=== PATIENT | male | born 1945 | race Asian ===

== ENCOUNTER 2022-09-30 08:07 | Outpatient (CLI) | payer MEDICARE, SELFPAY ==
--- NOTE | ~2022-09-30 | US_ITS ---
EXAMINATION: US art doppler w press LE BI DATE: 09/30/2022 09:03 INDICATION: Bilateral leg numbness. Decreased pulses. TECHNIQUE: Segmental pressures and plethysmographic and Doppler waveforms of the brachial and lower e xtremity arteries were obtained. COMPARISON: None. FINDINGS: Right and left brachial artery pressures of 115 mm Hg and 130 mm Hg, respectively, are concordant (no rmal difference <= 30 mmHg). The right and left high-thigh pressure indices are 1.20 and 1.26, respec tively (normal > 1.2). The right ankle-brachial index (DARIANA) is 1.25 (normal >= 0.9-1). The right great toe-brachial index (T BI) is 1.02 (normal >= 0.6-0.8). The right lower extremity segmental pressure gradients are normal (n ormal gradients <= 20-30 mmHg between adjacent levels on the same leg or the same levels on the two l egs). Arterial waveforms are triphasic at the right popliteal, posterior tibial and dorsalis pedis ar teries and biphasic at the right common femoral and superficial femoral arteries with brisk systolic upstrokes throughout. The left DARIANA is 1.25. The left TBI is 0.75. The left lower extremity segmental pressure gradients are normal. Arterial waveforms are triphasic at the left common femoral and popliteal arteries and bipha sic at the left superficial femoral, posterior tibial and dorsalis pedis arteries with brisk systolic upstrokes throughout. IMPRESSION: 1. Normal DARIANA's and TBI's bilaterally. No significant occlusive disease. Reviewed, dictated and finalized at location L.
== END 2022-09-30 08:08 | disposition home or self-care (01) ==
PROVIDERS: PCP Internal Medicine; Visit Provider Internal Medicine Cardiovascular Disease
DX: R20.0 Anesthesia of skin (principal); R09.89 Other specified symptoms and signs involving the circulatory and respiratory systems
CPT/HCPCS: 93923

== ENCOUNTER → 2022-10-12 10:50 | Outpatient (CLI) | payer MEDICARE, SELFPAY ==
--- NOTE | ~2022-10-12 | CT_ITS ---
Clinical Indication: Prostate carcinoma CT Scan of the Chest, Abdomen, and Pelvis without Contrast: Technique: Contiguous sections were acquired throughout the chest, abdomen, and pelvis without IV con trast administration. Dose reduction technique was used on this scan by utilizing automated exposure control and iterative reconstruction technique. The dose-length product (DLP) was 921.64 mGy-cm. Findings: There is no evidence of any significant mediastinal, hilar or axillary lymphadenopathy. The mediastin al soft tissues appear normal. There is no evidence of pleural or pericardial effusion. The lungs are clear, aside from right lower lobe calcified granuloma. The liver, spleen, pancreas, gallbladder, and kidneys are within normal limits. Bilateral low-density adrenal nodule consistent with bilateral adenomas, stable from prior exam. There are atherosclerotic calcifications of the aorta. No lymphadenopathy. No bowel obstruction or bowel wall thickening. There is no evidence to suggest acute appendicitis. Urinary bladder is unremarkable. Evidence of prior presumed prostatectomy. There is sclerotic change in the S1 vertebral body. There is a small sclerotic lesion at the left carlyle ac bone (axial image 200). Impression: Sclerotic change in the S1 vertebral body, and small sclerotic lesion at the right iliac bone. These findings are somewhat nonspecific. These are probably benign, likely representing reactive sclerosis S1 due to underlying degenerative disc disease, and small left iliac bone island. Osteoblastic metast atic disease is difficult to completely excluded however. Correlate clinically and with PSA levels. No other findings to suggest metastatic disease. Bilateral adrenal adenomas, unchanged. Reviewed, dictated and finalized at [facility]. Impression: Sclerotic change in the S1 vertebral body, and small sclerotic lesion at the ri ght iliac bone. These findings are somewhat nonspecific. These are probably nirav ign, likely representing reactive sclerosis S1 due to underlying degenerative d isc disease, and small left iliac bone island. Osteoblastic metastatic disease is difficult to completely excluded however. Correlate clinically and with PSA levels. No other findings to suggest metastatic disease. Bilateral adrenal adenomas, unchanged.
== END ==
PROVIDERS: PCP Internal Medicine; Visit Provider Internal Medicine
DX: C61 Malignant neoplasm of prostate (principal); D35.02 Benign neoplasm of left adrenal gland; D35.01 Benign neoplasm of right adrenal gland; M89.9 Disorder of bone, unspecified
CPT/HCPCS: 71250; 74176

== ENCOUNTER → 2022-11-11 11:43 | Outpatient (CLI) | payer MEDICARE, SELFPAY ==
--- NOTE | ~2022-11-11 | MR_ITS ---
EXAMINATION: MR hip LT wo con DATE: 11/11/2022 13:55 INDICATION: Prostate cancer. Low back pain. TECHNIQUE: Magnetic resonance imaging (MRI) of the left hip was performed without intravenous contra st. Sequences included full-field axial PD-weighted FS FSE and T1-weighted FSE, coronal of the pelvis with PD-weighted FS FSE, small field of view of the affected hip with axial PD-weighted FS FSE, sag ittal PD-weighted FS FSE and coronal PD weighted FS FSE. Additional radial T1-weighted FGR oriented o rthogonal to the acetabular rim were obtained for evaluation of the labrum. COMPARISON: None FINDINGS: Bones/labrum/cartilage: Mild leftward tilt of the visualized lower lumbar spine where there is severe spondylosis. Small low signal intensity bone island at the intertrochanteric right femur. 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 Chondral labral delamination with small partial-thickness tear at the base of the posterior superior left acetabular labrum. There is mild left hip osteoarthritis with nonuniform superomedial predominant joint space narrowing with mild partial thickness cartilage loss. No degenerative subchondral changes. Moderate osteoarthritis at the bilateral sacroiliac joints and mild right hip osteoarthritis. Fluid: Symmetric physiologic amount of fluid within both hip joints. Soft tissues: Normal and symmetric muscle bulk and signal in the pelvis and visualized proximal thighs. The iliopso as, gluteal and proximal hamstring tendons are normal. Status post prostatectomy with a few foci of m agnetic field artifact associated with surgical clips at the prostatectomy bed. Limited evaluation of visceral organs of the pelvis is otherwise unremarkable. No pathologically enlarged pelvic/inguinal lymphadenopathy. IMPRESSION: 1. Mild bilateral hip osteoarthritis with tear at the posterior superior left acetabular labrum. 2. Severe lower lumbar spondylosis. 3. No bone lesions suspicious for metastatic disease. Reviewed, dictated and finalized at location A. IMPRESSION: 1. Mild bilateral hip osteoarthritis with tear at the posterior superior left a cetabular labrum. 2. Severe lower lumbar spondylosis. 3. No bone lesions suspicious for metastatic disease.
--- NOTE | ~2022-11-11 | MR_ITS ---
EXAMINATION: MR lumbar spine wo con DATE: 11/11/2022 13:43 INDICATION: Low back pain. Prostate cancer. TECHNIQUE: Magnetic resonance imaging (MRI) of the lumbar spine was performed without intravenous con trast. Sequences included sagittal T2-weighted FSE, sagittal T2-weighted FS FSE, sagittal T1-weighted FSE, and axial T2-weighted FSE. COMPARISON: Lumbar spine MRI 09/03/2011, CT abdomen and pelvis 10/12/2022 FINDINGS: There is 5 degrees dextrocurvature of lumbar spine. Vertebral body heights are normal. Ther e is mildly decreased disc height at L3-L4 and L4-L5 and severely decreased disc height at L5-S1. The re are bridging endplate osteophytes at L3-L4. The distal spinal cord signal intensity is normal. The conus medullaris is at L1. The following disc levels are specifically discussed: L1-L2: The disc does not extend beyond the endplate margin. There is moderate right and mild left fac et joint osteoarthritis. There is no neural foraminal stenosis. There is no central canal stenosis. L2-L3: The disc does not extend beyond the endplate margin. There is moderate bilateral facet joint o steoarthritis. There is no neural foraminal stenosis. There is no central canal stenosis. L3-L4: The disc does not extend beyond the endplate margin. There is severe bilateral facet joint ost eoarthritis. There is no neural foraminal stenosis. There is no central canal stenosis. L4-L5: The disc is bulging with superimposed left foraminal extrusion. There is severe bilateral face t joint osteoarthritis. There is mild right and severe left neural foraminal stenosis. There is mild central canal stenosis. L5-S1: The disc is bulging and has an annular fissure. There is severe bilateral facet joint osteoart hritis. There is moderate right and mild left neural foraminal stenosis. There is mild central canal stenosis. IMPRESSION: 1. Severe lumbar spondylosis, worsened from 09/03/2011. 2. No evidence of metastatic disease. Reviewed, dictated and finalized at location A.
== END ==
PROVIDERS: PCP Internal Medicine; Visit Provider Internal Medicine
DX: M16.0 Bilateral primary osteoarthritis of hip (principal); S73.192A Other sprain of left hip, initial encounter; M43.06 Spondylolysis, lumbar region
CPT/HCPCS: 72148; 73721

== ENCOUNTER 2024-02-29 10:43 | Outpatient (CLI) | payer MEDICARE, SELFPAY ==
--- NOTE | ~2024-02-29 | XR_ITS ---
Right Knee Technique: AP, lateral, and sunrise views were obtained. Clinical History: Osteoarthritis Findings: No fracture or dislocation is seen. Osseous alignment is anatomic. Joint spaces are preserv ed without degenerative or erosive change. Chondrocalcinosis of the menisci noted. No joint effusion is seen. Impression: Chondrocalcinosis of the menisci. No acute abnormalities. Reviewed, dictated and finalized at location . 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 No acute abnormalities.
--- NOTE | ~2024-02-29 | XR_ITS ---
Left Knee Technique: AP, lateral, and sunrise views were obtained. Clinical History: Osteoarthritis Findings: No fracture or dislocation is seen. Osseous alignment is anatomic. Joint spaces are preserv ed without degenerative or erosive change. Soft tissues are unremarkable. No joint effusion is seen. Impression: Unremarkable left knee radiographs. Reviewed, dictated and finalized at location . KAYAKING GUIDE Impression: Unremarkable left knee radiographs.
== END 2024-02-29 10:44 | disposition home or self-care (01) ==
PROVIDERS: PCP Internal Medicine; Visit Provider Internal Medicine
DX: M11.261 Other chondrocalcinosis, right knee (principal)
CPT/HCPCS: 73564

== ENCOUNTER 2024-08-24 09:26 | Outpatient (CLI) | payer MEDICARE, SELFPAY ==
--- OUTSIDE RECORDS SUMMARY | 2024-08-24 09:35 | XMS_ITS | Encounter Summary ---
Author Organization [facility] Address [address] [place] [address] Phone Care Team Providers Care Club Director Name Role Phone Ferny Richmond MD Primary Care Provider Encounter Details Date Type Department Care Team (Late st Contact Info) Description 08/23/2024 1:15 PM CDT Lab [facility] Oncology Lab [facility] Floor [address] [place] [address] Cancer of prostate (HCC) Social History Tobacco Use Types Packs/Day Years Used Date Smoking Tobacco: Every Day Cigarettes Passive Smoke Exposure: Current Smokeless Tobacco: Never Alcohol Use Standard Drinks/Week Comments Yes 0 (1 standard drink = 0.6 oz pur e alcohol) occasionally Personal Safety Answer Date Recorded Have you ever been in or are you currently in a harmful physical or emotional relationship or is someone making you feel afraid or unsafe? 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
--- OUTSIDE RECORDS SUMMARY | 2024-08-24 09:35 | XMS_ITS | Encounter Summary ---
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 Gender Identity Not on file Sexual Orientation Not on file documented as of this encounter Plan of Treatment Not on file documented as of this encounter Procedures Procedure Name Priority Date/Time Associated Diagnosis Comments EGFR Routine 08/23/2024 1:08 PM CDT Cancer of prostate (HCC) DIFFERENTIAL AUTO Routine 08/23/2024 1:0 8 PM CDT Cancer of prostate (HCC) CBC WITH AUTO DIFFERENTIAL Routine 08/23/2024 1:08 PM CDT Cancer of prostate (HCC) TOTAL TESTOSTERONE Routine 08/23/2024 1: 08 PM CDT Cancer of prostate (HCC) PSA DIAGNOSTIC Routine 08/23/2024 1:08 PM CDT Cancer of prostate (HCC) COMPREHENSIVE METABOLIC PANEL Routine 08/23/2024 1:08 PM CDT Cancer of prostate (HCC) documented in this encounter Results * eGFR (08/23/2024 1:08 PM CDT) eGFR 87 >=60 mL/min/1. 73 m2 Comment: Interpretive Data Reference Interval Normal >/= 90 mL/min/1.73m2 Mildly decreased* 60 - 89 mL/min/1.73m2 Mildly to moderately decreased 45 - 59 mL/min/1.73m2 Moderately to severely decreased 30 - 44 mL/min/1.73m2 Severely decreased 15 - 29 mL/min/1.73m2 Kidney Failure < 15 mL/min/1.73m2 *Relative to young adult level Estimated glomerular filtration rate is determined by the 2020 CKD-EPI equation recommended by the National Kidney Foundation (A Unifying Approach to GFR Estimation: Recommendations of the NKF-ASK Task Force on Reassessing the Inclusion of Race in Diagnosing Kidney Disease, JASN 2020). The CKD-EPI equation should not be used for patients with unstable renal function and has not been validated in children and those over 70. Current interpretive data was last reviewed 2021. Blood 08/23/2024 1:08 PM CDT 08/23/2024 1:15 PM CDT us Cem Howell MD LAB BLOOD ORDERABLES Fin al Result [facility] Department [place] [address] * Differential, auto (08/23/2024 1:08 PM CDT) Neutrophil abs 3.78 1.50 - 6.50 K/cumm Comment:Testing performed by : [facility], [address] [place], [place] [id number] Lymphocyte abs 0.90 0.80 - 3.30 K/cumm [facility] Comment:Testing performed by : [facility], [address] [place], [place] [phone] Monocyte abs 0.42 0.20 - 0.80 K/cumm [facility] Comment:Testing performed by : [facility], [address] [place], [place] [id number] Eosinophil abs 0.14 0.00 - 0.50 K/cumm [facility] Comment:Testing performed by : [facility], [address] [place], [place] [phone] Basophil abs 0.05 0.00 - 0.10 K/cumm [facility] Comment:Testing performed by : [facility], [address] [place], [place] [phone] Neutrophil pct 71.6 % [facility] Comment: Interpretive Data Percent cell count reference ranges are not reported, since discordance with absolute values may lead to misinterpretation of CBC data. Current Interpretive Data was last revised on 2017. Testing performed by: [facility], [address] [place] [phone] Lymphocyte pct 17.0 % [facility] Comment: Interpretive Data Percent cell count reference ranges are not reported, since discordance with absolute values may lead to misinterpretation of CBC data. Current Interpretive Data was last revised on 2017. Testing performed by: [facility], [address] [place] [phone] Monocyte pct 7.9 % [facility] Comment: Interpretive Data Percent cell count reference ranges are not reported, since discordance with absolute values may lead to misinterpretation of CBC data. Current Interpretive Data was last revised on 2017. Testing performed by: [facility], [address] [place] [phone] Eosinophil pct 2.6 % [facility] Comment: Interpretive Data Percent cell count reference ranges are not reported, since discordance with absolute values may lead to misinterpretation of CBC data. Current Interpretive Data was last revised on 2017. Testing performed by: [facility], [address] [place] [phone] Basophil pct 1.0 % [facility] Comment: Interpretive Data Percent cell count reference ranges are not reported, since discordance with absolute values may lead to misinterpretation of CBC data. Current Interpretive Data was last revised on 2017. Testing performed by: [facility], [address] [place] [phone] Blood 08/23/2024 1:08 PM CDT 08/23/2024 1:12 PM CDT us Cem Howell MD LAB BLOOD ORDERABLES Fin al Result [facility] [place] [address] * (ABNORMAL) CBC with auto differential (08/23/2024 1:08 PM CDT) WBC 5.28 3.80 - 9.90 K/cumm Comment:Testing performed by : [facility], [address] [place] [address] Hgb 13.3 13.0 - 17.5 g/dL [facility] Comment:Testing performed by : [facility], [address] [place] [address] Hct 39.1 38.9 - 50.3 % [facility]ISETH [facility] Comment:Testing performed by : [facility], [address] [place] [address] Plt 172 150 - 400 K/cumm LISETH [facility] Comment:Testing performed by : [facility], [address] [place] [address] MPV 8.1 6.8 - 10.4 fL [facility] Comment:Testing performed by : [facility], [address] [place] [address] RBC 4.24(L) 4.30 - 5.80 M/cumm [facility] Comment:Testing performed by : [facility], [address] [place] [address] MCV 92.3 81.3 - 96.4 fL [facility] Comment:Testing performed by : [facility], [address] [place] [address] MCH 31.3 27.1 - 33.3 pg [facility]ETH [facility] Comment:Testing performed by : [facility], [address] [place] [address] MCHC 33.9 32.3 - 35.7 g/dL [facility] Comment:Testing performed by : [facility], [address] [place] [address] RDW CV 14.0 11.1 - 14.9 % [facility] Comment:Testing performed by : [facility], [address] [place] [address] NRBC abs 0.00 0.00 - 0.01 K/cumm [facility] Comment:Testing performed by : [facility], [address] [place] [address] Blood 08/23/2024 1:08 PM CDT 08/23/2024 1:12 PM CDT us Cem Howell MD LAB BLOOD ORDERABLES [facility] al Result [facility] [place] [address] * Comprehensive metabolic panel (08/23/2024 1:08 PM CDT) Sodium 144 135 - 145 mmol/L Potassium, pl 4.7 3.3 - 4.9 mmol/L [facility] Chloride 107 97 - 110 mmol/L [facility] CO2 28 22 - 32 mmol/L [facility] Anion gap 9 2 - 15 mmol/L [facility] BUN 21 6 - 25 mg/dL [facility] Creatinine 0.90 0.80 - 1.30 mg/dL [facility] Glucose 125 70 - 199 mg/dL [facility] Comment: Interpretive Data Fasting glucose >/= 126 mg/dl is diagnostic for diabetes. Fasting is defined as no caloric intake for at least 8 hours. Fasting glucose between 100 mg/dl to 125 mg/dl is diagnostic of prediabetes. In a patient with classic symptoms of hyperglycemia or hyperglycemic crisis, a random glucose >/= 200 mg/dl is diagnostic for diabetes. In the absence of unequivocal hyperglycemia, results should be confirmed by repeat testing. The classification and Diagnosis of Diabetes Diabetes Care 202; 46: S19-S40. Current interpretive data was last revised 2022. Calcium 9.5 8.5 - 10.3 mg/dL [facility] Bilirubin, total 0.2 0.1 - 1.2 mg/dL [facility] Protein, pl 7.2 6.5 - 8.5 g/dL [facility] Albumin 4.4 3.5 - 5.0 g/dL [facility] Alk phos 66 40 - 130 Units/L [facility] ALT 16 7 - 55 Units/L [facility] AST 25 10 - 50 Units/L [facility] Blood 08/23/2024 1:08 PM CDT 08/23/2024 1:15 PM CDT us Cem Howell MD LAB BLOOD ORDERABLES Fin al Result [facility] [place] [address] * PSA diagnostic (08/23/2024 1:08 PM CDT) PSA-Total <0.02 <=6.20 ng/mL Comment: Interpretive Data AGE SEX REFERENCE INTERVAL 0 minutes-150 years Female None 0 minutes-49 years Male None 50-59 years Male 0-3.90 60-69 years Male 0-5.40 70-79 years Male 0-6.20 80-150 years Male 0-6.20 The Kev PSA Total assay procedure was used. Results from different manufacturers or methods may not be comparable. Serial testing should be performed using the same method. Current interpretive data last revised 21. Blood 08/23/2024 1:08 PM CDT 08/23/2024 1:15 PM CDT Cem Howell MD LAB BLOOD ORDERABLES Fin al Result Performing Organization Address City[facility] Co de Phone Number [facility] [place] [address] * (ABNORMAL) Total testosterone (08/23/2024 1:08 PM CDT) Testosterone 15.0(L) 193.0 - 740.0 ng/dL Blood 08/23/2024 1:08 PM CDT 08/23/2024 1:37 PM CDT Cem Howell MD LAB BLOOD ORDERABLES Fin al Result Performing Organization Address [facility] de Phone Number [place] [address] documented in this encounter Visit Diagnoses Diagnosis Cancer of prostate (HCC) Malignant neoplasm of prostate documented in this encounter Care Teams Associate Director Relationship Specialty Start Date End Date Ferny Richmond MD PCP - General 05/17/16 documented as of this encounter
--- OUTSIDE RECORDS SUMMARY | 2024-08-24 09:35 | XMS_ITS | Data Portability ---
Author Organization [place] [facility] [address], Main Office Address [address] [place] [address] Assessment No assessment recorded. Plan of Treatment Reminders Order Date Submit Date Provider Last Modified By Organization Details Last Modified Time Details Appointments None recorded. Lab lipid panel, serum [id number] [place] [address] - Outpatient Lab, [address] [place], [address], 5 11:21:25 CMP, serum or plasma [id number] [place] [address] - Outpatient Lab, [address] [place], [address], 5 11:21:25 TSH, serum or plasma [id number] [place] [address] Outpatient Lab, [address] [place], [address], 5 11:21:25 T4, free, serum [id number] [place] [address] - Outpatient Lab, [address] [place], [address], 5 11:21:26 CBC w/ auto diff [id number] [place] [address] Outpatient Lab, [address] [place], [address], 5 11:21:26 vitamin B12, serum [id number] [place] [address] Outpatient Lab, [address] [place], [address], 11:21:26 Referral None recorded. Procedures None recorded. Surgeries None recorded. Imaging None recorded. Medication Orders None recorded. Patient TargetsNo targets recorded. Patient Instructions Encounter Date Encounter Id Patient Instructions Last Modified By Organization Details Last Modified Time 11/29/2023 [id number] Acute pharyngiti s, hypertension, carcinoma of the prostate as well as positive antinuclear antibody. Will set up with rheumatology for further evaluation. Will continue on current Rx recheck back in eight weeks see how the patient is doing. Additional Orders - Directives - Recommendations 1. Set up for with rheumatology for positive ALONSO Next Appointment: 8 Weeks Approximate Date: 01/24/2024 Portions of the record may have been created with voice recognition software. Occasional wrong-word or s ound-a-like substitutions may have occurred due to the inherent limitations of voice recognition software. Read the chart carefully and recognize, using context, where substitutions have occurred. [email or web address] Not available 11/29/2023 14:45:10 12/22/2023 [id number] Posterior nuchal headaches possibly hypertensive in nature. Increase the metoprolol to 50 mg twice daily. Recheck blood pressure in the office in one week. Additional Orders - Directives - Recommendations 1. Will increase his metoprolol from 25-50 mg twice daily 2. Instructed to drop by the office in approximately one week just to get his blood pressure check. Follow Up: 2 Months Approximate Date: 02/20/2024 Portions of the record may have been created with voice recognition software. Occasional wrong-word or s ound-a-like substitutions may have occurred due to the inherent limitations of voice recognition software. Read the chart carefully and recognize, using context, where substitutions have occurred. [email or web address] Not available 12/22/2023 15:42:52 02/16/2024 [id number] Follow-up for hypertension, hyperlipidemia, GERD, primary malignancy of the pad prostate and chronic pain syndrome. No specific etiology has been found for any of his musculoskeletal or pain complaints. Has undergone extensive evaluation at the [facility] with little in the way of any significant anomalies. Has known history of cancer of the prostate does not appear to be causing any type of major metastatic symptomatology. Has also had chest pain has been seen by Cardiology was just recently placed on some Ranexa which seems to have had no effect upon any chest pain. This would indicate probably has no nonobstructive coronary disease as well. Because of significant knee pain. Will obtain radiographic studies of both knees. No specific anomalies are noted on the physical examination. Check back in two months Additional Orders - Directives - Recommendations 1. x-rays of both knees for osteoarthritis Follow Up: 2 Months Approximate Date: 04/16/2024 Portions of the record may have been created with voice recognition software. Occasional wrong-word or s ound-a-like substitutions may have occurred due to the inherent limitations of voice recognition software. Read the chart carefully and recognize, using context, where substitutions have occurred. Created: Ferny Richmond M.D. 02.16.2024 02:39 PM [email or web address] Not available 02/16/2024 15:39:18 04/26/2024 [id number] Follow-up essent ial hypertension, hyperlipidemia, GERD as well as carcinoma of the prostate. Plan to check blood work consisting of CBC, CMP, lipid, thyroid. Will hold the lisinopril to see if there is any improvement in the cough. Otherwise seems to be doing well. Follow-up in four months Follow Up: 4 Months Approximate Date: 08/24/2024 Portions of record are template driven. When necessary additional context will be provided. Additionally some portions have been created with voice recognition software. Occasional wrong-word or s ound-a-like substitutions may have occurred due to the inherent limitations of voice recognition software. Read the chart carefully and recognize, using context, where substitutions may have occurred. Created: Ferny Richmond M.D. 04.26.2024 03:38 PM [email or web address] Not available 04/26/2024 16:38:25 08/09/2024 [id number] Follow-up essent ial hypertension, hyperlipidemia, carcinoma of the prostate and wheezing. Will obtain some baseline pulmonary functions. Has had some recent blood work performed in April. Will continue on current Rx follow-up in four months. Additional Orders - Directives - Recommendations 1. Set of pulmonary functions to be done up at [facility]. Follow Up: 4 Months Approximate Date: 12/07/2024 Portions of record are template driven. When necessary additional context will be provided. Additionally some portions have been created with voice recognition software. Occasional wrong-word or s ound-a-like substitutions may have occurred due to the inherent limitations of voice recognition software. Read the chart carefully and recognize, using context, where substitutions may have occurred. Created: Ferny Richmond M.D. 08.09.2024 03:41 PM [email or web address] Not available 08/09/2024 16:41:30 Reason for Referral None Reported. Results Created Date Observation Date Name Description Value Unit Range Abnormal Flag Note LastModifiedBy Organization Detail LastModifiedTime 11/17/19 24 11/22/2023 URIC ACID uric acid 3.1 mg/dL 4.0-8. 0 low Thera peuti c targe t for gout patie nts: <6.0 mg/dL Not Available [facility] [address] [place], [address], 11/22/2023 13:48:05 11/17/19 24 11/22/2023 ALONSO SCREE N, IFA, W/REF L TITER AND PATTE RN ALONSO screen, ifa POSITI VE negati ve abnormal ALONSO IFA is a first line scree n for detec ting the prese nce of up to appro ximat chip 150 autoa ntibo dies in vario us autoi mmune disea ses. A posit dinh ALONSO IFA resul t is sugge stive of autoi mmune disea se and refle xes to titer and adilson rn. Furth er labor atory testi ng may be consi dered if clini kamilah indic ated. For addit ional infor elvia roldan refer to http: //[facility].Fransisco stDia gnost ics.c om/fa q/FAQ 177 (This link is being provi ded for infor nroma santos/ educa kailyn l purpo ses only. ) Not Available [facility] [address], [place], [address], 11/22/2023 13:48:05 11/17/19 24 11/22/2023 ANTIN UCLEA R ANTIB ODIES TITER AND PATTE RN ALONSO titer 1:40 titer high A low level ALONSO titer may be prese nt in pre-c linic al autoi mmune disea ses and silvestre l indiv idual s. Refer ence Range <1:40 Negat dinh 1:40- 1:80 Low Antib re Level >1:80 Columbia holden Antib re Level Not Available [address] [address] [place], [address], 11/22/2023 13:48:06 11/17/19 24 11/22/2023 ANTIN UCLEA R ANTIB ODIES TITER AND PATTE RN ALONSO pattern Nuclea r, Speckl ed abnormal Speck led patte rn is assoc iated with mixed conne ctive tissu e disea se (MCTD ), syste el lupus eryth emato randall (SLE) , Sjogr en's syndr ome, derma tomyo sitis , and syste el scler osis/ polym yosit is overl ap. AC-2, 4,5,2 9: Speck led Inter natio nal Conse nsus on ALONSO Patte rns (http s://d oi.or g/10. 1515/ ccl- 2017- 0052) Not Available [facility] [address] [address] [place], [address], 11/22/2023 13:48:06 11/17/19 24 11/22/2023 ANTIN UCLEA R ANTIB ODIES TITER AND PATTE RN ALONSO titer 1:80 titer high A low level ALONSO titer may be prese nt in pre-c linic al autoi mmune disea ses and silvestre l indiv idual s. Refer ence Range <1:40 Negat dinh 1:40- 1:80 Low Antib re Level >1:80 Columbia holden Antib re Level Not Available [address] [address] [place], [address], 11/22/2023 13:48:06 11/17/19 24 11/22/2023 ANTIN UCLEA R ANTIB ODIES TITER AND PATTE RN ALONSO pattern Cytopl asmic, Rods and Rings abnormal Disti nct raúl and ring struc tures in the cytop lasm of inter phase cells . Patte rn is seen in hepat itis C patie nts post- IFN/r ibavi rin thera py, rarel y in syste el lupus eryth emato randall (SLE) , Fermin sukumar' s thyro iditi s, and may be found in healt hy perso ns. AC-23 : Rods and Rings Inter natio nal Conse nsus on ALONSO Patte rns (http s://d oi.or g/10. 3835/ [facility]- 2017- 0052) Not Available [address], [address], 11/22/2023 13:48:06 11/17/19 24 11/22/2023 COMPL EMENT COMPO NENT C3C complement component C3C 124 mg/dL 82-185 normal Not Available [address], [address], 11/22/2023 13:48:07 11/17/19 24 11/22/2023 COMPL EMENT COMPO NENT C4C complement component C4C 24 mg/dL 15-53 normal Not Available [address] [place], [address], 11/22/2023 13:48:07 11/17/19 24 11/22/2023 RHEUM ATOID FACTO R rheumatoid factor <10 IU/mL <14 normal Not Available [address] [place], [address], 11/22/2023 13:48:08 11/17/19 24 11/22/2023 C-ENRIQUETA CTIVE PROTE IN C-reactive protein <3.0 mg/L <8.0 normal Not Available [address], [address], 11/22/2023 13:48:08 11/17/19 24 11/22/2023 SCL-7 0 ANTIB RE scl-70 antibody <1.0 NEG ai <1.0 neg normal Not Available [address] [address] [place], [address], 11/22/2023 13:48:09 11/17/19 24 11/22/2023 SM AND SM/RN P ANTIB ODIES sm antibody <1.0 NEG ai <1.0 neg normal Not Available [address] [place], [address], 11/22/2023 13:48:10 11/17/19 24 11/22/2023 SM AND SM/RN P ANTIB ODIES sm/imaging engineer antibody <1.0 NEG ai <1.0 neg normal Not Available [address] [place], [address], 11/22/2023 13:48:10 11/17/19 24 11/22/2023 SJOGR EN'S ANTIB ODIES (SS-A ,SS-B ) sjogren's antibody (ss-A) <1.0 NEG ai <1.0 neg normal Not Available [address], [address], 11/22/2023 13:48:10 11/17/19 24 11/22/2023 SJOGR EN'S ANTIB ODIES (SS-A ,SS-B ) sjogren's antibody (ss-B) <1.0 NEG ai <1.0 neg normal Not Available [address], [address], 11/22/2023 13:48:10 11/17/19 24 11/22/2023 ALONSO MULTI PLEX W/REF KAYE 11 AB CASCA DE ALONSO screen, immunoassay NEGATI VE negati ve normal A negat dinh ALONSO Multi plex indic ates the absen ce of detec table antib odies to compo nent zoey sahra consi sting of toña e yung ded DNA (dsDN A), chrom atin, ribon ucleo prote in (MANHOLE BUILDER) , Pandey /MANHOLE BUILDER (Sm/R BENDING FRAME OPERATOR), Pandey (Sm), SS-A, SS-B, Fern-1, centr omere B, Scl-7 0 and ribos omal P. A negat dinh resul t shoul d be inter prete d in the sonu xt of the clini bernabe and labor atory findi ngs and does not rule out autoi mmune disea se juwan cteri zed by other autoa ntibo dy speci ficit ies such as rheum atoid arthr itis, autoi mmune hepat itis, prima ry bilia ry cirrh osis, autoi mmune thyro iditi s, Kake on's disea se, perni cious anemi a, autoi mmune neuro pathi es, vascu litis , ursula c disea se, and bullo us disea se. For addit ional infor elvia roldan e refer to http: //[facility] gnvy ics.c om/fa q/FAQ 177 (This link is being provi ded for infor norma santos/ educa kailyn l purpo ses only. ) Not Available [facility] [address] [place], [address], 11/22/2023 13:48:11 11/17/19 24 11/22/2023 HEMOG LOBIN A1C hemoglobin A1C 5.7 %_of_ total _HGB <5.7 high For someo ne witho ut known diabe sahra, a hemog lobin A1c value betwe en 5.7% and 6.4% is consi stent with predi abete s and shoul d be confi rmed with a follo w-up test. For someo ne with known diabe sahra, a value <7% indic ates that their diabe sahra is well contr olled . A1c targe ts shoul d be indiv idual ized based on durat ion of diabe sahra, age, comor bid condi tions , and other consi derat ions. This assay resul t is consi stent with an incre ased risk of diabe sahra. Curre ntly, no conse nsus exist s regar ding use of hemog lobin A1c for diagn osis of diabe sahra for child luke. This test was perfo rmed on the Kev humberto c503 platf orm. Effec tive , dimitry montague in test platf orms from the Abbot t Archi tect to the Kev humberto c503 may have shift ed HbA1c resul ts saumya red to histo rical resul ts. Based on labor atory valid ation testi ng condu cted at [facility] , the Kev platf orm relat dinh to the Abbot t platf orm had an avera ge incre ase in HbA1c value of < or = 0.3%. This diffe rence is withi n accep holden varia bilit y estab lishe d by the Natio nal Glyco hemog lobin Stand ardiz ation Progr am. Note that not all indiv idual s will have had a shift in their resul ts and direc t saumya rison s betwe en histo rical and curre nt resul ts for testi ng condu cted on diffe rent platf orms is not recom cass d. Not Available [facility] [address] [place], [address], 11/22/2023 13:48:11 11/17/19 24 11/22/2023 ANTIN UCLEA R ANTIB ODIES TITER AND PATTE RN ALONSO titer 1:40 titer high A low level ALONSO titer may be prese nt in pre-c linic al autoi mmune disea ses and silvestre l indiv idual s. Refer ence Range <1:40 Negat dinh 1:40- 1:80 Low Antib re Level >1:80 [place] holden Antib re Level Not Available [facility] [address] [place], [address], 11/22/2023 14:22:00 11/17/19 24 11/22/2023 ANTIN UCLEA R ANTIB ODIES TITER AND PATTE RN ALONSO pattern Nuclea r, Speckl ed abnormal Speck led adilson rn is assoc iated with mixed conne ctive tissu e disea se (MCTD ), syste el lupus eryth emato randall (SLE) , Sjogr en's syndr ome, derma tomyo sitis , and syste el scler osis/ polym yosit is overl ap. AC-2, 4,5,2 9: Speck led Inter natio nal Conse nsus on ALONSO Patte rns (http s://d oi.or g/10. 1515/ [facility]- 2017- 0052) Not Available [address] [address] [place], [address], 11/22/2023 14:22:00 11/17/19 24 11/22/2023 ANTIN UCLEA R ANTIB ODIES TITER AND PATTE RN ALONSO titer 1:80 titer high A low level ALONSO titer may be prese nt in pre-c linic al autoi mmune disea ses and silvestre l indiv idual s. Refer ence Range <1:40 Negat dinh 1:40- 1:80 Low Antib re Level >1:80 Columbia holden Antib re Level Not Available [address] [address] [place], [address], 11/22/2023 14:22:00 11/17/19 24 11/22/2023 ANTIN UCLEA R ANTIB ODIES TITER AND PATTE RN ALONSO pattern Cytopl asmic, Rods and Rings abnormal Disti nct raúl and ring struc tures in the cytop lasm of inter phase cells . Patte rn is seen in hepat itis C patie nts post- IFN/r ibavi rin thera py, rarel y in syste el lupus eryth emato randall (SLE) , Fermin sukumar' s thyro iditi s, and may be found in healt hy perso ns. AC-23 : Rods and Rings Inter natio nal Conse nsus on ALONSO Patte rns (http s://d oi.or g/10. 1515/ [facility]- 2017- 0052) Not Available [address] [address] [place], [address], 11/22/2023 14:22:00 02/29/20 24 02/29/2024 XR, knee No observ ation record ed. [email or web address] Not Available 2023 17:39:24 Result Notes None recorded. Problems Name Problem SNOMED Code Status Onset Date Resolution Date Notes Provider Name and Address Organization Details Recorded Time Pain of right shoulder joint 7113435789879 9100 Active 2022 Debi Sroto CMA null, [place] [facility] 3 13:00:35 Full thickness rotator cuff tear 798357896 Active 2022 Wolf Hand MD [address] [facility] [address], [place], [address] , [place] [facility] 3 13:39:14 Atypical chest pain 496623513 Active 2022 Ferny Richmond MD [address] [facility], [address], [place], [address] , [place] [facility] 3 16:53:13 Carcinoma of prostate 745536917 Active 2022 Katherine luna, [place] [facility] 3 16:36:12 Pain of left hip joint 4538125213566 00 Active 2022 Debi Sorto CMA null, [place] [facility] 3 14:07:51 Pain in left lower limb 698893538 Active 2022 Debi Sorto CMA null, [place] [facility] 3 14:08:22 Pain in limb 77438976 Active 2022 Debi Sorto CMA null, [place] [facility] 3 14:08:53 Pain of right knee joint 6576378130993 00 Active 2022 Debi Sorto CMA null, [place] [facility] 3 14:52:33 Pain of left ankle joint 0681644759936 9103 Active 2022 Debi Sorto CMA null, [place] [facility] 3 14:52:44 Malignant neoplasm of prostate 340896069 Active 2022 Katherine luna, [place] [facility] 3 12:06:56 Low back pain 484591935 Active 2022 Jonelle luna, [place] [facility] 3 17:09:18 Neuropathy 947791019 Active 2022 Debi Sorto CMA null, [facility] 3 17:35:34 Diverticul itis of colon 287847334 Active Not Available [facility] 3 03:14:42 Serum vitamin B12 below reference range 440686280 Active Not Available [facility] 3 03:14:42 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 Not Available [facility] 3 03:14:42 Pure hyperchole sterolemia 059884908 Active Not Available [facility] 3 03:14:42 Anemia 787572356 Active 2021 Not Available [facility] 3 03:14:42 Chest pain 48612003 Active 2021 Not Available [facility] 3 03:14:42 Depressive disorder 54984983 Active Not Available [facility] 3 03:14:42 Chronic pain syndrome 652899878 Active 2020 Not Available [facility] 3 03:14:42 Osteoarthr itis 344667741 Active Not Available [facility] 3 03:14:42 History of polyp of colon 072468682 Active Not Available [facility] 3 03:14:42 Pain of hip region 50117603 Active 2019 Not Available [facility] 3 03:14:42 COVID-19 446648719 Active 2021 Not Available [facility] 3 03:14:43 Primary malignant neoplasm of prostate 03433415 Active Not Available [facility] 3 03:14:43 Insomnia 319122267 Active 2023 Ferny Richmond MD [address], [place], [address] , [facility] 4 11:16:27 Gastroesop hageal reflux disease 278636354 Active 2023 Ferny Richmond MD [address], [place], [address] , [facility] 4 15:38:11 Acute urinary tract infection 459742386 Active 2023 Debi Sorto CMA null, [place] [facility] 4 15:01:27 Generalize d chronic body pains 437836752 Active 2023 Ferny Richmond MD [address], [place], [address] , [facility] 4 14:42:07 Pain of multiple joints 57436324 Active 2023 Ferny Richmond MD [address], [place], [address] , [facility] 4 14:47:45 Hyperglyce lynn 68476859 Active 2023 Katherine Barksdale jeremy, [facility] 4 14:51:11 Acute pharyngiti s 365562064 Active 2023 Ferny Richmond MD [address], [place], [address] , [facility] 4 14:38:17 Anti-nucle ar factor detected 879481339 Active 2023 Ferny Richmond MD [address], [place], [address] , [facility] 4 14:38:57 Headache 16342226 Active 2023 Ferny Richmond MD [address], [place], [address] , [facility] 4 15:38:15 Essential hypertensi on 34931633 Active 2023 Debi Sorto CMA null, [facility] 4 16:14:11 Osteoarthr itis of knee 751379268 Active 2023 Jonelle luna, [facility] 4 15:43:36 Wheezing 50347274 Active 2024 Ferny Richmond MD [address], [place], [address] , [facility] 5 16:38:22 Problem Notes None recorded. Procedures Surgical History Date Name Laterality Status Provider Name and Address Organization Details Recorded Time 3 Ortho - Cortisone Injection completed Wolf Hand MD [address] [facility] [facility] [address], [place], [address], [facility] 08/05/2022 13:38:58 Prostate completed Zena Smith, MADIE L [facility] 08/05/2022 13:17:48 Imaging Results None recorded. Procedure Notes None recorded. Medical Equipment None Reported. Allergies No known drug allergies Medications Name Sig Start Date Stop Date Status Note LastModified by Organization Details LastModified Time amoxicillin 500 mg capsule TAKE 1 CAPSULE BY MOUTH THREE TIMES DAILY FOR 10 DAYS 04/26 completed Not Available Not Available Not Available atorvastati n 40 mg tablet take one tablet daily active Not Available Not Available No t Available prednisone 10 mg tablet 01/13 completed Not Available Not Available Not Available venlafaxine ER 75 mg capsule,ext ended release 24 hr TAKE 1 CAPSULE BY MOUTH ONCE DAILY active Not Available Not Available No t Available doxycycline hyclate 100 mg capsule Take 1 capsule twice a day by oral route. 09/14 completed Not Available Not Available Not Available cefuroxime axetil 250 mg tablet TK 1 T PO BID 08/22 completed Not Available Not Available Not Available azithromyci n 250 mg tablet TAKE 2 TABLETS BY MOUTH ON DAY 1, AND THEN TAKE 1 TABLET BY MOUTH ONCE A DAY ON DAY 2 THROUGH DAY 5 04/26 completed Not Available Not Available Not Available benzonatate 200 mg capsule TAKE 1 CAPSULE BY MOUTH THREE TIMES DAILY 10/17 completed Not Available Not Available Not Available hydrocodone 5 mg-acetamin ophen 325 mg tablet 04/15 completed Not Available Not Available Not Available sucralfate 1 gram tablet TAKE 1 TABLET BY MOUTH 4 TIMES DAILY ON AN EMPTY STOMACH FOR 14 DAYS 10/17 completed Not Available Not Available Not Available alendronate 70 mg tablet TAKE 1 TABLET BY MOUTH EVERY 7 DAYS IN THE MORNING WITH FULL GLASS OF WATER ON AN EMPTY STOMACH. NOTHING BY MOUTH OR LIE DOWN FOR NEXT 30 MINUTES 11/28 completed Not Available Not Available Not Available metronidazo le 250 mg tablet active Not Available Not Available Not Available metronidazo le 500 mg tablet 10/30 completed Not Available Not Available Not Available ciprofloxac in 500 mg tablet TAKE 1 TABLET BY MOUTH TWICE DAILY FOR 2 DAYS 11/28 completed Not Available Not Available Not Available hydrocodone 10 mg-acetamin ophen 325 mg tablet TK 1 T PO QID 09/04 completed Not Available Not Available Not Available aspirin 81 mg tablet,hossein yed release Take 1 tablet every day by oral route. 09/04 completed Not Available Not Available Not Available tramadol 50 mg tablet Take 1 tablet by mouth 4 times daily active Not Available Not Available No t Available dexamethaso ne sodium phosphate 0.1 % eye drops INSTILL 1 DROP IN RIGHT EYE FOUR TIMES DAILY DIRECTED. BEGIN ONCE OUT OF COMBO DROP TO COMPLETE FULL MONTH DIRECTED 03/09 completed Not Available Not Available Not Available prednisone 10 mg tablets in a dose pack Take 1 tab by mouth, 3 times a day for 3 daysTake 1 tab by mouth 2 times a day for 2 daysTake 1 tab by mouth once a day for 1 day 01/17 completed Not Available Not Available Not Available ciclopirox 8 % topical solution APPLY TO AFFECTED NAIL ONCE DAILY active Not Available Not Available No t Available oxycodone-a cetaminophe n 5 mg-325 mg tablet 08/22 completed Not Available Not Available Not Available alprazolam 0.5 mg tablet TAKE 1 TABLET BY MOUTH THREE TIMES DAILY 2024 active Not Available Not Available Not Avai lable citalopram 20 mg tablet Take 1 tablet by mouth once daily active Not Available Not Available No t Available trazodone 100 mg tablet TAKE 1 TABLET BY MOUTH ONCE DAILY AT BEDTIME active Not Available Not Available No t Available Kenalog 10 mg/mL suspension for injection Take 10 mg by injection route. 10/01 completed [facility]: [phone]- [phone] Not Available Not Available Not Available hydrocodone 7.5 mg-acetamin ophen 325 mg tablet TAKE 1 TABLET BY MOUTH EVERY 6 HOURS 04/15 completed Not Available Not Available Not Available pantoprazol e 40 mg tablet,hossein yed release TAKE 1 TABLET BY MOUTH ONCE DAILY active Not Available Not Available No t Available cyanocobala min (vit B-12) 1,000 mcg/mL injection solution active Not Available Not Available Not Available chlorpromaz ine 25 mg tablet active Not Available Not Available Not Available metoprolol tartrate 50 mg tablet TAKE 1 TABLET BY MOUTH TWICE DAILY active Not Available Not Available No t Available gabapentin 300 mg capsule TAKE 1 CAPSULE BY MOUTH THREE TIMES DAILY 10/17 completed Not Available Not Available Not Available quinapril 20 mg tablet TAKE 1 TABLET BY MOUTH EVERY DAY 10/01 completed Not Available Not Available Not Available gabapentin 100 mg capsule Take 1 capsule 3 times a day by oral route. 12/17 completed Not Available Not Available Not Available levofloxaci n 500 mg tablet TK 1 T PO Q 24 H active Not Available Not Available No t Available methylpredn isolone 4 mg tablets in a dose pack TAKE BY MOUTH DIRECTED ON INSIDE OF PACKAGE 10/17 completed Not Available Not Available Not Available neomycin 500 mg tablet active Not Available Not Available Not Available albuterol sulfate HFA 90 mcg/actuati on aerosol inhaler INHALE 2 PUFFS BY MOUTH EVERY 4 HOURS 11/28 completed Not Available Not Available Not Available lisinopril 40 mg tablet TAKE 1 TABLET BY MOUTH ONCE DAILY active Not Available Not Available No t Available cefdinir 300 mg capsule TAKE 1 CAPSULE BY MOUTH EVERY 12 HOURS 10/17 completed Not Available Not Available Not Available sertraline 50 mg tablet TAKE 1 TABLET BY MOUTH ONCE DAILY 11/28 completed Not Available Not Available Not Available amoxicillin 875 mg-potassiu m clavulanate 125 mg tablet TAKE 1 TABLET BY MOUTH TWICE DAILY 09/14 completed Not Available Not Available Not Available escitalopra m 10 mg tablet TK 1 T PO D 09/20 completed Not Available Not Available Not Available Cialis 5 mg tablet Take 1 tablet every day by oral route. 09/20 completed Not Available Not Available Not Available metoprolol tartrate 25 mg tablet take one tablet by mouth twice daily 04/26 completed Not Available Not Available Not Available ranolazine ER 500 mg tablet,exte nded release,12 hr TAKE 1 TABLET BY MOUTH TWICE DAILY active Not Available Not Available No t Available lidocaine (PF) 10 mg/mL (1 %) injection solution In office injection administe red by the provider 05/23 completed [facility]: [phone]- [phone] Not Available Not Available Not Available diclofenac 1 % topical gel 09/24 completed Not Available Not Available Not Available Prolia 60 mg/mL subcutaneou s syringe INJECT 1 MILLILITE R (60 MG) BY SUBCUTANE OUS ROUTE EVERY 6 MONTHS IN THE UPPER ARM, UPPER THIGH OR ABDOMEN 10/17 completed Not Available Not Available Not Available Suprep Bowel Prep Kit 17.5 gram-3.13 gram-1.6 gram oral solution active Not Available Not Available Not Available ropivacaine (PF) 5 mg/mL (0.5 %) injection solution Take 20 mg by injection route. 10/01 completed [facility] [phone] Not Available Not Available Not Available Firmagon kit with diluent syringe 120 mg subcutaneou s solution 01/23 completed Not Available Not Available Not Available Sutab 1.479-0.188 -0.225 gram tablet TAKE DIRECTED 07/03 completed Not Available Not Available Not Available Paxlovid 300 mg (150 mg x 2)-100 mg tablets in a dose pack Take two of he 150 mg tablets and one of the 100 mg tablets twice daily for five days active Not Available Not Available No t Available Vitals Date Recorded Body height Body mass index (BMI) Body weight Heart rate Body temperature Oxygen saturation Oxygen saturation in Arterial blood by Pulse oximetry Systolic blood pressure Diastolic blood pressure Provider Name and Address Organization Details Last Updated DateTime 5 172.72 cm 27.4 kg/m2 55973.6 3 g 64 /min 97 [degF] 98 % 98 % 122 mm[Hg] 78 mm[Hg] [employer] 5 16:13:01 Date Recorded Body height Body mass index (BMI) Body weight Heart rate Body temperature Oxygen saturation Oxygen saturation in Arterial blood by Pulse oximetry Systolic blood pressure Diastolic blood pressure Provider Name and Address Organization Details Last Updated DateTime 5 172.72 cm 27.4 kg/m2 55289.6 3 g 75 /min 97 [degF] 96 % 96 % 120 mm[Hg] 78 mm[Hg] [employer] [facility] 5 16:24:28 Date Recorded Body height Body mass index (BMI) Body weight Body temperature Heart rate Oxygen saturation Oxygen saturation in Arterial blood by Pulse oximetry Systolic blood pressure Diastolic blood pressure Provider Name and Address Organization Details Last Updated DateTime 4 172.72 cm 26.5 kg/m2 16109.0 7 g 96.4 [degF] 81 /min 96 % 96 % 130 mm[Hg] 70 mm[Hg] Zaina Morel MA [facility] [employer] [facility] 4 14:28:58 Date Recorded Body height Body mass index (BMI) Body weight Heart rate Body temperature Oxygen saturation Oxygen saturation in Arterial blood by Pulse oximetry Systolic blood pressure Diastolic blood pressure Provider Name and Address Organization Details Last Updated DateTime 4 172.72 cm 26 kg/m2 00143.3 g 78 /min 97 [degF] 97 % 97 % 134 mm[Hg] 80 mm[Hg] Jonelle Garza [facility] [employer] [facility] 4 15:33:29 Date Recorded Body height Body mass index (BMI) Body weight Heart rate Body temperature Oxygen saturation Oxygen saturation in Arterial blood by Pulse oximetry Systolic blood pressure Diastolic blood pressure Provider Name and Address Organization Details Last Updated DateTime 4 172.72 cm 27.1 kg/m2 73567.4 4 g 66 /min 97 [degF] 98 % 98 % 118 mm[Hg] 70 mm[Hg] ARSEN Sandoval [facility] [employer] [facility] 4 15:25:01 Social History Question Answer Notes LastModified by Organizat ion Details LastModified Time Tobacco Smoking Status Current Every Day Smoker Zena Smith, MADIE L null, [facility] [employer] [facility] 08/05/2022 13:14:52 Are You Blind Or Do You Have Difficulty Seeing? No [id number] Information not available 05/26/2022 In The 14 Days Before Symptom Onset, Have You Had Close Contact With A Laboratory-confirm ed COVID-19 While That Case Was Ill? No [id number] Information not available 05/26/2022 In The 14 Days Before Symptom Onset, Have You Had Close Contact With A Person Who Is Under Investigation For COVID-19 While That Person Was Ill? No [id number] Information not available 05/26/2022 Are You Deaf Or Do You Have Serious Difficulty Hearing? No [id number] Information not available 05/26/2022 How Much Tobacco Do You Smoke? 0.5 PPD Information not available 08/05/2022 Have You Recently Traveled Abroad? No [id number] Information not available 05/26/2022 Do You Have Difficulty Walking Or Climbing Stairs? No [id number] Information not available 05/26/2022 Sex: Unknown Functional Status Question Answer Note LastModified by Organizat ion Details LastModified Time What is your level of alcohol consumption? None Information not available 08/05/2022 Do you have transportation difficulties? No [id number] Information not available 05/26/2022 Are you able to walk? YESWOREST [id number].[id number] Information not available 05/26/2022 Do you have difficulty doing errands alone? No [id number] Information not available 05/26/2022 Are you able to care for yourself? Yes [id number] Information not available 05/26/2022 Do you have difficulty dressing or bathing? No [id number] Information not available 05/26/2022 Mental Status Question Answer Note LastModified by Organizat ion Details LastModified Time Do you have difficulty concentrating, remembering or making decisions? No [id number] Information not available 05/26/2022 Family History Relationship Description Onset Age of this Age Resolved Age Notes LastModified by Organization Details LastModified Time Unspecified Relation Hypertensive disorder [email or web address] Not available 07/26 13:14:12 Notes:Mother 72 CRF , HTN Father 71 arteriosclerotic heart disease and Type II Diabetes Sisters one living and in good health Brothers living 2 arteriosclerotic heart disease, high cholesterol and depression, one has CA Prostate Medical History Condition Response NERVE DISEASE N BLINDNESS N RHEUMATIC FEVER N KIDNEY STONES N BLADDER PROBLEMS N MRSA N OTHER # 1 N POLIO N LUNG DISEASE/DISORDER N HISTORY OF DRUG ABUSE N RADIATION / CHEMOTHERAPY N COPD N Other # 2 N BLOOD DISEASES N EAR OR HEARING PROBLEMS N MUMPS N SHINGLES N DEPRESSION (INCLUDING POST ) N BOWEL PROBLEMS N STROKE/TIA N ULCERS N BENIGN PROSTATIC HYPERPLASIA N MEASLES N HYPOTENSION N MYOCARDIAL INFARCTION N OBESITY N GERD/NAUSEA N ANEURYSM N URINARY/BLADDER/KIDNEY PROBLEMS N CORONARY ARTERY DISEASE (CAD) N ADDICTION CONCERNS N Impotence N ENDOMETRIOSIS N USE OF BLOOD THINNERS N SKIN PROBLEMS N GASTROINTESTINAL DISORDER N PERIPHERAL VASCULAR DISEASE N MUSCLE,JOINT OR BONE PROBLEMS N GASTROINTESTINAL BLEEDING N BLOOD CLOTS N ASTHMA N CATARACTS N ERECTILE DYSFUNCTION N VARICOSITIES N GI PROBLEMS N Low Testosterone N INFERTILITY N AIDS/HIV N CHEMOTHERAPY / RADIATION N LIVER DISEASE N MALE HYPOGONADISM N HYPERTENSION N Deficiency N TOURETTE'S N ANXIETY DISORDER N BLOOD TRANSFUSION N ANEMIA/BLOOD DISORDER N CHRONIC EAR INFECTIONS N BRONCHITIS N TUBERCULOSIS N GLAUCOMA N FOOT PROBLEM N DIVERTICULITIS N SLEEP APNEA N CHICKENPOX N INFECTIOUS DISEASE N PROSTATE N HEART ARRHYTHMIA N INSOMNIA N HIGH CHOLESTEROL / HYPERLIPIDEMIA Y HYPERTHYROIDISM N EYE PROBLEMS N EDEMA N CHRONIC PAIN SYNDROME N HYPOTHYROIDISM N CONSTIPATION N CAROTID BLOCKAGE N BACK / NECK PROBLEMS N HAVE YOU BEEN HOSPITALIZED OR SEEN IN [facility] IN THE PAST YEAR ? N ATHEROSCLEROSIS N BREAST PROBLEMS N DIALYSIS N ECZEMA N OSTEOPOROSIS N ARTHRITIS Y NO SIGNIFICANT PAST MEDICAL HISTORY N APPENDICITIS N DIABETES, TYPE N BAD TEETH N ENT N HEARTBURN / REFLUX N AUTISM SPECTRUM DISORDER (ASD) N HEPATITIS / LIVER DISEASE N GOUT N SLEEP DISORDER N ALZHEIMER'S DISEASE N Brain Problems N HERPES N DEMENTIA N SEIZURES/EPILEPSY N HEADACHES/MIGRAINES N VASCULAR DISEASE N PACEMAKER N Blood Disorder N DIZZINESS N KIDNEY DISEASE N HEART DISEASE/HEART PROBLEMS N MULTIPLE SCLEROSIS N CARDIAC ARRHYTHMIA N CANCER: SPECIFY Y Gall Stones N ATRIAL FIBRILLATION N PULMONARY EMBOLISM N AUTOIMMUNE DISEASE N Immunizations Vaccine Type Date Status Note Provider Nam e and Address Organization Details Recorded Time COVID-19 vaccine, vector-nr, rS-Ad26, PF, 0.5 mL 2 completed Not Available [facility] 05/26/2022 03:26:08 SARS-COV-2 (COVID-19) vaccine, UNSPECIFIED 1 completed Not Available [facility] 05/26/2022 03:26:08 Past Encounters Encounter ID Performer Location Encounter Start Date Encounter Closed Date Diagnosis/Indication Diagnosis SNOMED-CT Code Diagnosis ICD10 Code Diagnosis Note [id number] Ferny Richmond MD [facility] [address] [facility] y , [facility] [place] [address] 09/02/2020 00:00:00 09/02/2020 12:58:53 [id number] Ferny Richmond MD [facility] [place] [address] [place] [address] [place] [address] 01/13/2021 00:00:00 01/13/2021 12:05:59 [id number] Ferny Richmond MD [facility] [place] [address] [place] [address] [place] [address] 07/03/2021 00:00:00 07/03/2021 11:38:22 [id number] Ferny Richmond MD [facility] [place] [address] [place] [address] y , [place] [address] 03/09/2022 00:00:00 03/09/2022 15:47:32 [id number] Wolf Hand MD [facility] [place] [address] [place] [address] 08/05/2022 13:00:29 08/05/2022 16:07:09 Pain of right shoulder joint 7408971685 2949938 M25.511 Full thick ness rotator cuff tear 757940961 M75.121 [id number] Ferny Richmond MD [facility] [place] [address] [place] [address] [place] [address] 09/14/2022 16:13:34 09/14/2022 17:13:09 Atypical chest pain 793990217 R07.89 Benign ess ential hypertension 3872719 I10 Primary ma lignant neoplasm of prostate 46193116 C61 [id number] Ferny Richmond MD [facility] [place] [address] [place] [address] [place] [address] 10/01/2022 16:12:44 10/01/2022 17:15:07 Chest pain 19451605 R07.9 Primary ma lignant neoplasm of prostate 34123036 C61 [id number] Ferny Richmond MD [facility] [place] [address] [place] [address] [place] [address] 11/05/2022 15:25:11 11/05/2022 16:43:58 Pain in left lower limb 547447639 M79.605 Carcinoma of prostate 25 7944450 C61 Benign ess ential hypertension 4468500 I10 Pure hypercholesterolemia 775071429 E78.00 [id number] Ferny Richmond MD [facility] Internal [facility] [place] [address] [place] [address] y , [place] [address] 02/25/2023 10:25:14 02/25/2023 10:51:53 Malignant neoplasm of prostate 164315869 C61 M54.50 Benign ess ential hypertension 3427425 I10 Atypical chest pain 1025 65360 R07.89 Pre-surger y evaluation 753673312 Z01.818 Pure hypercholesterolemia 195012276 E78.00 [id number] Ferny Richmond MD [facility] [place] [address] [place] [address] y , [place] [address] 07/01/2023 14:42:48 07/01/2023 15:44:16 Benign essential hypertension 6350450 I10 Malignant neoplasm of prostate 394922494 C61 M54.50 Pure hypercholesterolemia 926431179 E78.00 Gastroesop hageal reflux disease 995285319 K21.9 [id number] Ferny Richmond MD [facility] [place] [address] [place] [address] y , [place] [address] 10/18/2023 16:33:28 10/18/2023 17:14:33 Atypical chest pain 462614233 R07.89 Benign ess ential hypertension 1923528 I10 Gastroesop hageal reflux disease 663040430 K21.9 Malignant neoplasm of prostate 153646175 C61 M54.50 Depressive disorder 3548 9007 F32.A [id number] Ferny Richmond MD [facility] Internal [facility] [place] [address] [place] [address] [place] [address] 11/17/2023 14:22:07 11/17/2023 14:55:54 Generalized chronic body pains 081290543 G89.29 Benign ess ential hypertension 0961682 I10 Carcinoma of prostate 25 8712517 C61 Gastroesop hageal reflux disease 948061336 K21.9 Pain of mu ltiple joints 11743649 M25.50 [id number] Ferny iRchmond MD [facility] Internal Med [address] [place] [address] 11/29/2023 14:14:48 11/29/2023 14:51:33 Acute pharyngitis 849024294 J02.9 Benign ess ential hypertension 8784777 I10 Carcinoma of prostate 25 9275616 C61 Anti-nucle ar factor detected 766701893 R76.8 [id number] Ferny Richmond MD [facility] Internal Med [address] y , [place] [address] 12/22/2023 15:20:10 12/22/2023 16:10:38 Headache 20801338 R51.9 Benign ess ential hypertension 6741119 I10 [id number] Ferny Richmond MD [facility] Primary Care [address] [place] [address] 02/16/2024 15:17:05 02/16/2024 16:03:29 Benign essential hypertension 6915087 I10 Primary ma lignant neoplasm of prostate 52785964 C61 Pure hypercholesterolemia 123273312 E78.00 Chronic pain syndrome 37 8898753 G89.4 Gastroesop hageal reflux disease 807057249 K21.9 [id number] Ferny Richmond MD [facility] Primary [facility] [address] [place] [address] 04/26/2024 15:30:58 04/26/2024 16:44:35 Essential hypertension 15450602 I10 Carcinoma of prostate 25 0772974 C61 Pure hypercholesterolemia 123166565 E78.00 Gastroesop hageal reflux disease 431954733 K21.9 [id number] Ferny Richmond MD [facility] Internal Med [facility] [address] [facility], [facility] [address] [place] [address] 08/09/2024 15:53:14 08/09/2024 16:52:20 Essential hypertension 70114011 I10 Pure hypercholesterolemia 073295046 E78.00 Carcinoma of prostate 25 8760547 C61 Wheezing 99353213 R06.2 Health Concerns Section Related Observation LastModified by Organization Detai ls LastModified Time None Recorded Concern Status LastModified by Organization Details LastModified Time None Recorded Advance Directives Directive None Recorded Payers Encounter Date Sequence Insurance Name Policy Number Policy Moran Covered Member ID Moran Member ID Guarantor Name 11/29/2023 1 [employer] (MEDICARE REPLACEMENT /ADVANTAGE - PPO) [id number] 1 Neeraj Joharifard [id number] Neeraj Joharifard 12/22/2023 1 [employer] (MEDICARE REPLACEMENT /ADVANTAGE - PPO) [id number] 1 Neeraj Joharifard [id number] Neeraj Joharifard 02/16/2024 1 [employer] (MEDICARE REPLACEMENT /ADVANTAGE - PPO) [id number] 1 Neeraj Joharifard [id number] Neeraj Joharifard 04/26/2024 1 [employer] (MEDICARE REPLACEMENT /ADVANTAGE - PPO) [id number] 1 Neeraj Joharifard [id number] Neeraj Joharifard 08/09/2024 1 [employer] (MEDICARE REPLACEMENT /ADVANTAGE - PPO) [id number] 1 Neeraj Joharifard [id number] Neeraj Joharifard Notes Date Note Type Note Provider Name and Address Organization Details Recorded Time 11/29/19 24 text/htm l Patient Name: Neeraj Sanchezate Of Service: Tuesday ( 11.29.2023 ): 1945 Age: 78 There has been approximately a 3 lb weight gain since 11/17/2023. This represents approximately a 1.8% change in weight. Weight change attributable to lifestyle changes. Vital Signs:Blood Pressure: Sitting Rt. Arm 130/70Pulse: Sitting 81 /min and RegularRespiratory Rate: 14Height 68 in or 1.7 mWeight 174 lb or 78.9 kgBMI 26.5Temperature: 96.4 F or 35.8 CPulse Oximetry: 96 % at rest on no oxygen Chief Complaint: Addressed in HPI Problems or conditions discussed in the HPI were the only ones reviewed during the encounter.Only social and family history addressed in the HPI were reviewed during this encounter. A significant, separate E/M service was performed to evaluate the current and new problems. Attendant(s): NoneConstitutional and Systemic Symptoms:none Medication Reconciliation: from medication list. Zibjukvwgfc57/18/2023: CT of chest abdomen pelvis demonstrated no evidence of any type of significant findings consistent with causing any pain or discomfort in the right lateral chest and upper abdomen. Sclerotic changes noted S1 and the right iliac bone nonspecific findings did not appear to be secondary to osteoblastic metastases. And in either case would not be causing discomfort that is described. 11/10/2022: Arterial Doppler lower extremity demonstrates no evidence any obstructive vascular lesions.11/10/2022: Venous Doppler demonstrates no significant venous obstruction or evidence of deep vein thrombosis. 11/11/2022: MRI of the lumbar spine mildly decreased disc height at L3-L4 and L4-L5. Severely decreased disc height at L5-S1. There are bridging endplate osteophytes at L3-L4. The distal spinal cord signal intensity is normal. L1-L2, L2-L3, L3-L4, L4-L5 and L5-S1 demonstrates some mild central canal stenosis and significant bilateral facet joint osteoarthritis. Worse than scans performed back in 2011.mri. No evidence of any metastatic vgydniy3611/11/2022: MRI of the hip demonstrate mild bilateral hip osteoarthritis with tear at the posterior superior left acetabular labrum. No evidence of any metastatic disease History of Present Illness #1. Recent problems with just generalized aches and pain. Did have a set of rheumatoid studies performed which showed a marginally positive ALONSO a nucleolar and cytoplasmic distribution 1-40 and 1-80 Titers which are marginal. May set up with rheumatology for further evaluation.: #2. Essential Hypertension: Stage: Stage I Interval Neurological Complaints no headaches, dizziness, weakness, visual changes, ataxia, aphasia and apraxia. No shortness of breath, orthopnea or cardiovascular symptoms. No other symptoms related to end organ damage. Pressure has been under excellent control. Currently normal. No other end organ symptoms or findings. Therapy reviewed regarding management of hypertension and includes salt restriction and Lisinopril and Metoprolol. #3. Hx of Ca of the prostate doing well. No interval complaints of any bone pain or other symptoms suggestive of metastatic disease. Having his PSA check regularly by us or the urologist. #4. History of acute pharyngitis manifested by some pharyngeal discomfort. On physical examination there is some redness and tenderness over the anterior cervical chain as well as redness in the right posterior pharynx. Will cover with a Z-Delbert.: Active Medication ListXanax 0.5 MG (TABLET - ORAL) One Three Times A DayAspirin 81 Mg OdLisinopril 20 MG (TABLET - ORAL) Once Daily For Blood PressureLipitor 40 MG (TABLET - ORAL) One Daily For CholesterolFosamax 70 MG TABLET WeeklyMetoprolol 25 MG (TABLET - ORAL) One BidProtonix 40 MG GRANULE, DELAYED RELEASE One Daily Vaccination and Pjbskidqncgp9360-27 Covid Booster J&e3294-73 Covid 19 Junior & Oloqolu9043-63 Influenza Surgical Mobacoi4152-97 Lumbar Mpgfyruflvu5294-49 Colon Udddmdrbg1819-03 Radical Prostatectomy Preventative Testing( ) 11/17/2023 HAIC 5.7 % OF TOTAL HGB H( ) 09/20/2023 Upper Endoscopy( ) 07/19/2023 Ophthalmology( ) 07/03/2021 Albumin 4.5 G/DL N( ) 11/14/2020 Colonoscopy (10 Years) 11/14/2030(X) 03/12/2016 PSA 1.33 NG/ML N 03/12/2018 Social HistorySmokes approximately one half pack dailyDrinks sociallyAccountant Family HistoryMother 72 CRF, HTNFather 71 arteriosclerotic heart disease and Type II DiabetesSisters one living and in good healthBrothers living 3 arteriosclerotic heart disease, high cholesterol and depression, one has [place] Prostate Ferny Richmond MD [address] [facility] [address], [place], [address], [facility] 11/29/2023 14:45:25 12/22/19 24 text/htm l Patient Name: Neeraj Rogel Of Service: November ( 12.22.2023 ): 1945 Age: 78 There has been approximately a 3 lb weight loss since 11/29/2023. This represents approximately a 1.7% change in weight. Weight change attributable to lifestyle changes. Vital Signs:Blood Pressure: Sitting Rt. Arm 134/80Pulse: Sitting 78 /min and RegularRespiratory Rate: 14Height 68 in or 1.7 mWeight 171 lb or 77.6 kgBMI 26.0Temperature: 97 F or 36.1 CPulse Oximetry: 97 % at rest on no oxygen Chief Complaint: Addressed in HPI Problems or conditions discussed in the HPI were the only ones reviewed during the encounter.Only social and family history addressed in the HPI were reviewed during this encounter. Attendant(s): NoneConstitutional and Systemic Symptoms:none Medication Reconciliation: from medication list. History of Present Illness #1. Persistent pain and discomfort in the posterior neck and occipital area associated with elevation of blood pressure on intermittent basis. States when the headache peaks in intensity pressure may be running 150-160 systolic. Will continue on his lisinopril 20 mg once daily. Will increase the metoprolol from 25 mg twice daily to 50 mg twice daily see if there is any improvement in symptomatology. Otherwise is clinically stable at this time. Recheck his blood pressure in approximately one week and assess whether or not there has been any improvement in his symptomatology.: #2. Essential Hypertension: Stage: normal Interval Neurological Complaints headaches. No shortness of breath, orthopnea or cardiovascular symptoms. No other symptoms related to end organ damage. Pressure has been under fair control. Currently normal. No other end organ symptoms or findings. Therapy reviewed regarding management of hypertension and includes Lisinopril and Metoprolol. Active Medication ListXanax 0.5 MG (TABLET - ORAL) One Three Times A DayAspirin 81 Mg OdLisinopril 20 MG (TABLET - ORAL) Once Daily For Blood PressureLipitor 40 MG (TABLET - ORAL) One Daily For CholesterolFosamax 70 MG TABLET WeeklyMetoprolol 25 MG (TABLET - ORAL) One BidProtonix 40 MG GRANULE, DELAYED RELEASE One Daily Vaccination and [id number] Covid Booster [id number] Covid 19 Junior & [id number] Influenza Surgical Fegdddx0193-81 Lumbar Guvnakvyhdj6259-26 Colon [id number] Radical Prostatectomy Preventative Testing( ) 11/17/2023 HAIC 5.7 % OF TOTAL HGB H( ) 09/20/2023 Upper Endoscopy( ) 07/19/2023 Ophthalmology( ) 07/03/2021 Albumin 4.5 G/DL N( ) 11/14/2020 Colonoscopy (10 Years) 11/14/2030(X) 03/12/2016 PSA 1.33 NG/ML N 03/12/2018 Social HistorySmokes approximately one half pack dailyDrinks sociallyAccountant Family HistoryMother 72 CRF, HTNFather 71 arteriosclerotic heart disease and Type II DiabetesSisters one living and in good healthBrothers living 3 arteriosclerotic heart disease, high cholesterol and depression, one has CA Prostate Ferny Richmond MD [address], [facility] [address], [place], [address], [facility] [employer] 12/22/2023 15:43:12 02/16/20 24 text/htm l Patient Name: Neeraj Rogel Of Service: January ( 02.16.2024 ): 1945 Age: 78 There has been approximately a 7 lb weight gain since 12/22/2023. This represents approximately a 4.1% change in weight. Weight change attributable to lifestyle changes. Vital Signs:Blood Pressure: Sitting Rt. Arm 118/70Pulse: Sitting 66 /min and RegularRespiratory Rate: 16Height 68 in or 1.7 mWeight 178 lb or 80.7 kgBMI 27.1Temperature: 97 F or 36.1 CPulse Oximetry: 98 % at rest on no oxygen Chief Complaint: Addressed in HPI Problems or conditions discussed in the HPI were the only ones reviewed during the encounter.Only social and family history addressed in the HPI were reviewed during this encounter. Attendant(s): NoneConstitutional and Systemic Symptoms:none Medication Reconciliation: from medication list. Aastcidxdnb92/18/2023: CT of chest abdomen pelvis demonstrated no evidence of any type of significant findings consistent with causing any pain or discomfort in the right lateral chest and upper abdomen. Sclerotic changes noted S1 and the right iliac bone nonspecific findings did not appear to be secondary to osteoblastic metastases. And in either case would not be causing discomfort that is described. 11/10/2022: Arterial Doppler lower extremity demonstrates no evidence any obstructive vascular lesions.11/10/2022: Venous Doppler demonstrates no significant venous obstruction or evidence of deep vein thrombosis. 11/11/2022: MRI of the lumbar spine mildly decreased disc height at L3-L4 and L4-L5. Severely decreased disc height at L5-S1. There are bridging endplate osteophytes at L3-L4. The distal spinal cord signal intensity is normal. L1-L2, L2-L3, L3-L4, L4-L5 and L5-S1 demonstrates some mild central canal stenosis and significant bilateral facet joint osteoarthritis. Worse than scans performed back in 2011.mri. No evidence of any metastatic ajxreuo7911/11/2022: MRI of the hip demonstrate mild bilateral hip osteoarthritis with tear at the posterior superior left acetabular labrum. No evidence of any metastatic disease History of Present Illness #1. Essential Hypertension: Stage: Stage I Interval Neurological Complaints dizziness, weakness, visual changes, ataxia, aphasia and apraxia. No shortness of breath, orthopnea or cardiovascular symptoms. No other symptoms related to end organ damage. Pressure has been under excellent control. Currently normal. No other end organ symptoms or findings. Therapy reviewed regarding management of hypertension and includes salt restriction and Lisinopril and Metoprolol. #2. Type II Hypercholesterolaemia: Currently taking medication and tolerating well. No interval complaints of any muscle pain or arthralgia. No significant liver changes with medications. Last lipid panel: fair control. Therapy reviewed regarding treatment of cholesterol management and include diet and Lipitor. #3. Hx of esophageal reflux currently stable. Hx of Complications: none The severity, duration and intensity of symptoms have improved. Frequency: most meals Treatment consists medications taken on a regular basis. Current therapy includes Protonix. There has been no nausea, eructation, vomiting, hematemesis, dysphagia, velopharyngeal insufficiency and odynophagia. No change in he frequency or intensity of symptoms. Has had no melena. Has had no . Discussed use of H2 antagonists and the possibility of trying to reduce the frequency of the use of any PPI inhibitors and try H2 antagonists to see if symptoms can be controlled with lease intensive therapy since a number of complications are associated with chronic prolonged use of PPI inhibitors. #4. Hx of Ca of the prostate doing well. No interval complaints of any bone pain or other symptoms suggestive of metastatic disease. Having his PSA check regularly by us or the urologist. #5. Chronic pain management for chronic thoracic, lumbar, knees, hips and generalized joint pain Since last examination no significant change since last examination Interval Testing: Has had extensive evaluation even at [facility] and no specific etiology has been found for any type of chest or bone pain despite his history of cancer of the prostate.Has tried NSAIDS partial relief requiring additional medication. Pain Description: constant, exacerbated by activity and interferes with enjoyment and ability to perform activities of daily living. 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 as prescribed with no evidence of abuse or self prescribing. Current Average Morphine Milligram Approximate Equivalent: 0 mg approximated if taking full dosage daily. Recommend: NA.Benzodiazepines or other hypnotics: yes and have discussed reducing dose.Alternative pain management modalities (acupuncture - behavior therapy- additional PT - SNRIs) have been discussed and have either been tried in the past or not acceptable alternatives to patient or not available in our location.Will kept medications the same.Urine Testing: not indicated and this time.Controlled substance database no. Pill counts when available have been acceptable. No other signs of any abuse.Patient reports condition is stable and is able to function with the medication. Denies any misuse or adverse effects.TREATMENT OBJECTIVE: Enhance ability to manage pain independently, improved function and sustain quality of life. Recommendations or alternative therapies and lifestyle changes are discussed on each visit. Has shown improvement inf functionality. Has been educated on the side effects,risks and any black box warnings. Has verbalized the dangers of some of the medications regarding driving and cooperating heavy machinery and have advised against this. Active Medication ListXanax 0.5 MG (TABLET - ORAL) One Three Times A DayAspirin 81 Mg OdLisinopril 20 MG (TABLET - ORAL) Once Daily For Blood PressureLipitor 40 MG (TABLET - ORAL) One Daily For CholesterolFosamax 70 MG TABLET WeeklyMetoprolol 50 MG TABLET One BidRanexa 500 MG TABLET, FILM COATED, EXTENDED RELEASE One BidProtonix 40 MG GRANULE, DELAYED RELEASE One Daily Vaccination and Immunization(X) 2007-01 INFLUENZA( ) 2020- COVID 19 JUNIOR & JUNIOR(X) 2021- COVID BOOSTER J&J Surgical Csyqdfk0466-79 Lumbar Szitdtxclnn0103-37 Colon Lcfimcfdt2466-94 Radical Prostatectomy Preventative Testing( ) 11/17/2023 HAIC 5.7 % OF TOTAL HGB H( ) 09/20/2023 Upper Endoscopy 09/20/2055( ) 07/19/2023 Ophthalmology( ) 07/03/2021 Albumin 4.5 G/DL N( ) 11/14/2020 Colonoscopy (10 Years) 11/14/2030(X) 03/12/2016 PSA 1.33 NG/ML N 03/12/2018 Social HistorySmokes approximately one half pack dailyDrinks sociallyAccountant Family HistoryMother 72 CRF, HTNFather 71 arteriosclerotic heart disease and Type II DiabetesSisters one living and in good healthBrothers living 3 arteriosclerotic heart disease, high cholesterol and depression, one has [place] Prostate Ferny Richmond MD [address], [facility] [address], [place], [address], [facility] [employer] 02/16/2024 15:40:04 04/26/19 25 text/htm l Patient Name: Neeraj Rogel Of Service: March ( 04.26.2024 ): 1945 Age: 78 There has been approximately a 2 lb weight gain since 02/16/2024. This represents approximately a 1.1% change in weight. Weight change attributable to lifestyle changes. Vital Signs:Blood Pressure: Sitting Rt. Arm 122/78Pulse: Sitting 64 /min and RegularRespiratory Rate: 16Height 68 in or 1.7 mWeight 180 lb or 81.6 kgBMI 27.4Temperature: 97 F or 36.1 CPulse Oximetry: 98 % at rest on no oxygen Chief Complaint: Addressed in HPI Problems or conditions discussed in the HPI were the only ones reviewed during the encounter.Only social and family history addressed in the HPI were reviewed during this encounter. Attendant(s): NoneConstitutional and Systemic Symptoms:none Medication Reconciliation: from medication list. Mcrndozxnex95/18/2023: CT of chest abdomen pelvis demonstrated no evidence of any type of significant findings consistent with causing any pain or discomfort in the right lateral chest and upper abdomen. Sclerotic changes noted S1 and the right iliac bone nonspecific findings did not appear to be secondary to osteoblastic metastases. And in either case would not be causing discomfort that is described. 11/10/2022: Arterial Doppler lower extremity demonstrates no evidence any obstructive vascular lesions.11/10/2022: Venous Doppler demonstrates no significant venous obstruction or evidence of deep vein thrombosis. 11/11/2022: MRI of the lumbar spine mildly decreased disc height at L3-L4 and L4-L5. Severely decreased disc height at L5-S1. There are bridging endplate osteophytes at L3-L4. The distal spinal cord signal intensity is normal. L1-L2, L2-L3, L3-L4, L4-L5 and L5-S1 demonstrates some mild central canal stenosis and significant bilateral facet joint osteoarthritis. Worse than scans performed back in 2011.mri. No evidence of any metastatic gkeltlj8711/11/2022: MRI of the hip demonstrate mild bilateral hip osteoarthritis with tear at the posterior superior left acetabular labrum. No evidence of any metastatic disease History of Present Illness #1. Essential Hypertension: Stage: Stage I Interval Neurological Complaints no headaches, dizziness, weakness, visual changes, ataxia, aphasia and apraxia. No shortness of breath, orthopnea or cardiovascular symptoms. No other symptoms related to end organ damage. Pressure has been under excellent control. Currently well controlled. No other end organ symptoms or findings. Therapy reviewed regarding management of hypertension and includes salt restriction and Lisinopril and Metoprolol. #2. Type II Hypercholesterolaemia: Currently taking medication and tolerating well. No interval complaints of any muscle pain or arthralgia. No significant liver changes with medications. Last lipid panel: fair control. Therapy reviewed regarding treatment of cholesterol management and include diet and Lipitor. #3. Hx of esophageal reflux currently stable. Hx of Complications: none The severity, duration and intensity of symptoms have improved. Frequency: most meals Treatment consists medications taken on no regular basis. Current therapy includes no medication. There has been no nausea, eructation, vomiting, hematemesis, dysphagia, velopharyngeal insufficiency and odynophagia. No change in he frequency or intensity of symptoms. Has had no melena. Has had no . Discussed use of H2 antagonists and the possibility of trying to reduce the frequency of the use of any PPI inhibitors and try H2 antagonists to see if symptoms can be controlled with lease intensive therapy since a number of complications are associated with chronic prolonged use of PPI inhibitors. #4. Hx of Ca of the prostate doing well. No interval complaints of any bone pain or other symptoms suggestive of metastatic disease. Having his PSA check regularly by us or the urologist. Active Medication ListXanax 0.5 MG (TABLET - ORAL) One Three Times A DayAspirin 81 Mg OdLipitor 40 MG (TABLET - ORAL) One Daily For CholesterolFosamax 70 MG TABLET WeeklyMetoprolol 50 MG TABLET One BidRanexa 500 MG TABLET, FILM COATED, EXTENDED RELEASE One BidProtonix 40 MG GRANULE, DELAYED RELEASE One Daily Vaccination and Immunization(X) 2006- INFLUENZA( ) 2020- COVID 19 JUNIOR & JUNIOR(X) 2021- COVID BOOSTER J&J Surgical [id number] Lumbar Ozcwqcxlucw1386-57 Colon Uzeygqqmx8859-04 Radical Prostatectomy Preventative Testing( ) 11/17/2023 HAIC 5.7 % OF TOTAL HGB H( ) 09/20/2023 Upper Endoscopy 09/20/2055( ) 07/19/2023 Ophthalmology( ) 07/03/2021 Albumin 4.5 G/DL N( ) 11/14/2020 Colonoscopy (10 Years) 11/14/2030(X) 03/12/2016 PSA 1.33 NG/ML N 03/12/2018 Social HistorySmokes approximately one half pack dailyDrinks sociallyAccountant Family HistoryMother 72 CRF, HTNFather 71 arteriosclerotic heart disease and Type II DiabetesSisters one living and in good healthBrothers living 2 arteriosclerotic heart disease, high cholesterol and depression, one has [place] Prostate Ferny Richmond MD [address] [facility] [address], [place], [address], [facility] [employer] 04/26/2024 16:38:45 08/10/19 25 text/htm l Patient Name: Neeraj Rogel Of Service: July ( 08.09.2024 ): 1945 Age: 78 Vital Signs:Blood Pressure: Sitting Rt. Arm 120/78Pulse: Sitting 75 /min and RegularRespiratory Rate: 16Height 68 in or 1.7 mWeight 180 lb or 81.6 kgBMI 27.4Temperature: 97 F or 36.1 CPulse Oximetry: 96 % at rest on no oxygen Chief Complaint: Addressed in HPI Problems or conditions discussed in the HPI were the only ones reviewed during the encounter.Only social and family history addressed in the HPI were reviewed during this encounter. Attendant(s): NoneConstitutional and Systemic Symptoms:none Medication Reconciliation: from medication list. Rjpifklvvhm30/18/2023: CT of chest abdomen pelvis demonstrated no evidence of any type of significant findings consistent with causing any pain or discomfort in the right lateral chest and upper abdomen. Sclerotic changes noted S1 and the right iliac bone nonspecific findings did not appear to be secondary to osteoblastic metastases. And in either case would not be causing discomfort that is described. 11/10/2022: Arterial Doppler lower extremity demonstrates no evidence any obstructive vascular lesions.11/10/2022: Venous Doppler demonstrates no significant venous obstruction or evidence of deep vein thrombosis. 11/11/2022: MRI of the lumbar spine mildly decreased disc height at L3-L4 and L4-L5. Severely decreased disc height at L5-S1. There are bridging endplate osteophytes at L3-L4. The distal spinal cord signal intensity is normal. L1-L2, L2-L3, L3-L4, L4-L5 and L5-S1 demonstrates some mild central canal stenosis and significant bilateral facet joint osteoarthritis. Worse than scans performed back in 2011.mri. No evidence of any metastatic wybghbr9611/11/2022: MRI of the hip demonstrate mild bilateral hip osteoarthritis with tear at the posterior superior left acetabular labrum. No evidence of any metastatic disease History of Present Illness #1. Essential Hypertension: Stage: Stage I Interval Neurological Complaints no headaches, dizziness, weakness, visual changes, ataxia, aphasia and apraxia. No shortness of breath, orthopnea or cardiovascular symptoms. No other symptoms related to end organ damage. Pressure has been under excellent control. Currently normal. No other end organ symptoms or findings. Therapy reviewed regarding management of hypertension and includes salt restriction and Metoprolol. #2. Type II Hypercholesterolaemia: Currently taking medication and tolerating well. No interval complaints of any muscle pain or arthralgia. No significant liver changes with medications. Last lipid panel: fair control. Therapy reviewed regarding treatment of cholesterol management and include diet and Lipitor. #3. Hx of Ca of the prostate doing well. No interval complaints of any bone pain or other symptoms suggestive of metastatic disease. Having his PSA check regularly by us or the urologist. #4. Has had some problems with a chronic cough as well as some wheezing. Denies any hemoptysis. Long past history of smoking. Denies any history of any recent exacerbation. Has had no orthopnea, PND or any cardiopulmonary symptoms outside the just mentioned.: Active Medication ListXanax 0.5 MG (TABLET - ORAL) One Three Times A DayAspirin 81 Mg OdLipitor 40 MG (TABLET - ORAL) One Daily For CholesterolFosamax 70 MG TABLET WeeklyMetoprolol 50 MG TABLET One BidRanexa 500 MG TABLET, FILM COATED, EXTENDED RELEASE One BidProtonix 40 MG GRANULE, DELAYED RELEASE One Daily Vaccination and ImmunizationImmunizations and Vaccinations Discussed and Implemented if feasible In the Office. Else referred to pharmacies. (X) 2006- INFLUENZA( ) 2020- COVID 19 JUNIOR & JUNIOR(X) 2021- COVID BOOSTER J&J Surgical Ynipjnh1773-83 Lumbar Tpupmngvjfv9986-66 Colon Otnprajdo7526-66 Radical Prostatectomy Preventative TestingPreventative Testing Discussed and Scheduled if Acceptable to Patient ( ) 05/28/2024 Ophthalmology( ) 05/11/2024 Lab Lipid( ) 11/17/2023 HAIC 5.7 % OF TOTAL HGB H( ) 09/20/2023 Upper Endoscopy 09/20/2055( ) 07/03/2021 Albumin 4.5 G/DL N( ) 11/14/2020 Colonoscopy (10 Years) 11/14/2030(X) 03/12/2016 PSA 1.33 NG/ML N 03/12/2018 Social HistorySmokes approximately one half pack dailyDrinks sociallyAccountant Family HistoryMother 72 CRF, HTNFather 71 arteriosclerotic heart disease and Type II DiabetesSisters one living and in good healthBrothers living 2 arteriosclerotic heart disease, high cholesterol and depression, one has [place] Prostate Ferny Richmond MD [address] [facility] [address], [place], [address], [facility] [employer] 08/09/2024 16:43:27
--- OUTSIDE RECORDS SUMMARY | 2024-08-24 09:35 | XMS_ITS | Referral Summary ---
Author Organization [facility] al Address [address] [place] [address] Care Team Providers Care [place] Tour Guide Name Role Phone Ferny Richmond MD Primary Care Provider Encounters Date Type Department Care Team Description 08/23/2024 1:00 PM CDT Lab [facility] - Lab Collection [address] [facility] Floor 5 [place] [address] Cancer of prostate (HCC) 08/23/2024 1:15 PM CDT Lab [facility] Oncology Lab [facility] Floor 5 [place] [address] Cancer of prostate (HCC) 08/23/2024 2:00 PM CDT Office Visit [facility] Oncology [address] [place] [address] Floor 5 [place] [phone] Cem Howell MD Cancer of prostate (HCC) (Primary Dx) 08/17/2024 2:10 PM CDT Clinical Support [facility] [address] [facility] Advanced Medicine 5th [place] [address] [place] [phone] Osteopenia of multiple sites (Primary Dx); Cancer of prostate (HCC) 06/26/2024 1:00 PM CDT Office Visit [facility] Cardiology [address] [place] [address] Flory Krishnan NP Other chest pain (Primary Dx) 05/31/2024 1:15 PM ACCOUNTANT AUDITOR Lab [facility] - Lab Collection [address] [facility] Floor 5 [place] [address] Malignant neoplasm of prostate (HCC) 05/31/2024 2:00 PM ACCOUNTANT AUDITOR Office Visit [facility] Oncology [address] [place] [address] 5 [place] [address] Cem Howell MD Cancer of prostate (HCC) (Primary Dx); Malignant neoplasm of prostate (HCC) 05/31/2024 1:00 PM ACCOUNTANT AUDITOR Lab [facility] Oncology Lab [facility] 5 [place] [address] Malignant neoplasm of prostate (HCC) from Last 3 Months Allergies No known active allergies Medications atorvastatin (LIPITOR) 40 mg tablet Take by mouth daily 8 Active cholecalcifero l (VITAMIN D-3) 2,000 unit tablet 1 tab daily Active citalopram (CeleXA) 20 mg tablet daily 6 Active ALPRAZolam (XANAX) 0.5 mg tablet 3 (three) times a day as needed 6 Active calcium carbonate/talon min D3 (CALCIUM 500 + D ORAL) Take by mouth daily. Active venlafaxine XR (EFFEXOR-XR) 75 mg 24 hr capsule venlafaxine ER 75 mg capsule,extende d release 24 hr TK 1 C PO QD Active lisinopriL (PRINIVIL,ZEST RIL) 40 mg tablet Take 1 tablet (40 mg total) by mouth daily 3 Active cyanocobalamin (Vitamin B-12) 1,000 mcg/mL injection Inject into the muscle as instructed Active gabapentin (NEURONTIN) 100 mg capsule Take 1 capsule (100 mg total) by mouth 3 (three) times a day Active traZODone (DESYREL) 100 mg tablet Take 1 tablet (100 mg total) by mouth nightly Active ranolazine ER (RANEXA) 500 mg 12 hr tablet Take 1 tablet (500 mg total) by mouth 2 (two) times a day Active ciclopirox (PENLAC) 8 % solution APPLY TO AFFECTED NAIL ONCE DAILY 4 Active metoprolol tartrate (LOPRESSOR) 50 mg immediate release tablet Take 1 tablet (50 mg total) by mouth 2 (two) times a day [address] (PROTONIX) 40 mg EC tabletIndicati ons:Treatment of Non-Bleeding Gastric Disorder Take 1 tablet (40 mg total) by mouth daily 90 tablet 3 5 04/24/19 26 Active aspirin 81 mg enteric coated tabletIndicati ons:Coronary artery disease involving [place] coronary artery of [place] heart without angina pectoris Take 1 tablet (81 mg total) by mouth daily 30 tablet 11 3 08/24/19 25 Discontin ued(Patie nt Reported) alendronate (FOSAMAX) 70 mg tablet Take 1 tablet (70 mg total) by mouth every 7 days Take in the morning with a full glass of water, on an empty stomach, and do not take anything else by mouth or lie down for the next 30 min. 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 Urinary retention 12/29/2023 Positive antinuclear antibody 11/29/2023 Hyperglycemia 11/17/2023 Multiple joint pain 11/17/2023 Acute urinary tract infection 10/10/2023 Gastroesophageal reflux disease 07/01/2023 Acute pharyngitis 05/23/2023 Insomnia 04/17/2023 Unspecified thoracic, thorac olumbar and lumbosacral intervertebral disc disorder 03/04/2023 Neuropathy 12/17/2022 Coronary artery disease invo lving [place] coronary artery of [place] heart without angina pectoris 12/14/2022 Arthralgia of right knee 11/04/2022 Pain in limb 11/04/2022 Gastroesophageal reflux disease with esophagitis 09/21/2022 Bilateral leg numbness 09/21/2022 Decreased pulse 09/21/2022 Full thickness rotator cuff tear 08/05/2022 Pain in joint of right shoulder 08/04/2022 COVID-19 03/04/2022 Chest pain 07/03/2021 Overview (12/29/2023): Last Assessment & Plan: Chest pain- sharp substernal pain radiating to left precordium with occasional left arm pain and shortness of breath; worrisome for ACS RF: age, tobacco, HTN, hyperlipidemia, +FamHx CAD (father, brother) Occ forgets to take medications EKG with RBBB, no acute ST-T changes Initial HS trop neg D-dimer normal; doubt PE CXR ok Prior cardiac work up: 2021 CTA chest 1. Small triple-vessel peripheral plaques with up to 40% stenosis within the proximal left circumflex artery. (CAD-RADS 2) 2. Partially imaged acute to subacute left anterior rib fractures. 2019 SPECT- negative for ischemia. 11/29/2012 Left heart catheterization : No significant coronary artery disease. Will admit to cardiac unit: Monitor on telemetry, r/o arrhytmia Follow serial HS troponins Check TTE with bubble (given syncopal episode few weeks ago); r/o SWMA, check EF Check FLP, HgA1c, TSH, lipase Continue aspirin 81mg daily Increase atorvastatin to 80mg at night (LDL was 142 in 2021 on 40mg) Resume lisinopril 40mg daily Resume metoprolol 25mg BID Cardiology consult Would benefit from CV risk stratification if r/o'd for [place] Anemia 07/03/2021 Benign essential hypertension 02/12/2021 Cigarette nicotine dependence without complicati on 02/12/2021 Anxiety 06/06/2020 Suicidal ideations 06/06/2020 Primary osteoarthritis of both shoulders 021 Chronic generalized pain 05/22/2020 Pain of left hip joint 11/27/2019 Rib pain 05/14/2016 Depressive disorder 04/13/2016 Overview (12/29/2023): Last Assessment & Plan: Patient takes Celexa, Effexor, and Xanax intermittently as an outpatient Okay to resume Celexa Okay to resume Xanax Patient advised to follow up with PCP Can consider Wellbutrin for tobacco cessation and mood Easy fatigability 04/13/2016 Low back pain 04/13/2016 Smokes tobacco daily 04/13/2016 Diverticulitis 12/25/2015 Unstable angina pectoris 11/28/2012 Hyperlipidemia 04/23/2011 Hypertension 04/07/2011 Increased frequency of urination 09/24/2010 Malignant neoplasm of prostate 04/01/2009 Cancer Staging:Pathologic stage from 09/15/2023:Stage IIIB(pT3b, pN0, cM0, PSA: 6, Grade Group: 3) - Signed by Cem Howell MD on 09/15/2023 Overview (12/29/2023): 02/2009- PSA 5.6 Incidentally found to due lipoma on his back (asked for PSA check) 03/07/2009- Prostate biopsy ([place] 3+3) 04/17/09- Laparascopic radical prostatectomy; laparascopic bilateral pelvic lymphadenectomy Pathology [id number], Jason 3+4, with positive LVI and positive seminal vesicle invasion on the left. Surgical margins were negative with no extracapsular extension 05/26/09 PSA 0.01 06/11/2009 Referred to RT 07/22/09-09/10/09- IMRT to prostatic bed with total of 64.8 G 05/11/10- PSA < 0.01 01/02/15 PSA increased from 0.1 to 0.2 03/12/15 PSA 0.3 05/06/15 PSA 0.4 05/27/15- Negative CT AP and bone scan 07/29/15- Testosterone 482, PSA 0.5 08/05/15- Negative CT CAP- sigmoid diverticulitis with slightly worsening inflammation in the pelvis Last Assessment & Plan: Status post prostatectomy 2021 PSA undetectable Followed by PCP Immunizations Immunization Administration Dates Next Due Lilliam (J&J) SARS-CoV-2 Vaccination 03/30/2021, 06/26/2020 Sars-CoV-2, Unspecified 07/20/2020 Tdap 07/07/2014 Social History Tobacco Use Types Packs/Day Years Used Date Smoking Tobacco: Every Day Cigarettes Passive Smoke Exposure: Current Smokeless Tobacco: Never Tobacco Cessation:Ready to Q uit: Not Asked; Counseling Given: Not Answered Alcohol Use Standard Drinks/Week Comments Yes 0 [...] on file Legal Sex Male 12:17 AM ACCOUNTANT AUDITOR Gender Identity Not on file Sexual Orientation Not on file Last Filed Vital Signs Vital Sign Reading Time Taken Comments Blood Pressure 141/76 08/23/2024 1:16 PM CDT Pulse 71 08/23/2024 1:16 PM CDT Temperature 36.4 C (97.5 F) 08/23/2024 1:16 PM CDT Respiratory Rate 16 08/23/2024 1:16 PM CDT Oxygen Saturation 98% 08/23/2024 1:16 PM CDT Inhaled Oxygen Concentration - - Weight 81.8 kg (180 lb 6.4 oz) 08/23/2024 1:16 P M CDT Height 177.8 cm (5' 10) 06/26/2024 1:03 PM CDT Body Mass Index 25.88 06/26/2024 1:03 PM CDT Plan of Treatment Not on file Procedures Procedure Name Priority Date/Time Associated Diagnosis Comments EGFR Routine 08/23/2024 1:08 PM CDT Cancer of prostate (HCC) DIFFERENTIAL AUTO Routine 08/23/2024 1:0 8 PM CDT Cancer of prostate (HCC) CBC WITH AUTO DIFFERENTIAL Routine 08/23/2024 1:08 PM CDT Cancer of prostate (HCC) COMPREHENSIVE METABOLIC PANEL Routine 08/23/2024 1:08 PM CDT Cancer of prostate (HCC) PSA DIAGNOSTIC Routine 08/23/2024 1:08 PM CDT Cancer of prostate (HCC) TOTAL TESTOSTERONE Routine 08/23/2024 1: 08 PM CDT Cancer of prostate (HCC) DEXA AXIAL SKELETON BONE DENSITY 1 OR MORE SITES Schedule Routine, Read Routine (OP Routine) 08/17/2024 1:53 PM CDT Cancer of prostate (HCC) EGFR Routine 05/31/2024 12:58 PM ACCOUNTANT AUDITOR Malignant neoplasm of prostate (HCC) DIFFERENTIAL AUTO Routine 05/31/2024 12: 58 PM ACCOUNTANT AUDITOR Malignant neoplasm of prostate (HCC) CBC WITH AUTO DIFFERENTIAL Routine 05/31/2024 12:58 PM ACCOUNTANT AUDITOR Malignant neoplasm of prostate (HCC) COMPREHENSIVE METABOLIC PANEL Routine 05/31/2024 12:58 PM ACCOUNTANT AUDITOR Malignant neoplasm of prostate (HCC) PSA DIAGNOSTIC Routine 05/31/2024 12:58 PM ACCOUNTANT AUDITOR Malignant neoplasm of prostate (HCC) TOTAL TESTOSTERONE Routine 05/31/2024 12 :58 PM ACCOUNTANT AUDITOR Malignant neoplasm of prostate (HCC) CT CHEST ABDOMEN PELVIS W CONTRAST Schedule Routine, Read Routine (OP Routine) 03/31/2023 10:34 AM ACCOUNTANT AUDITOR Cancer of prostate (HCC) from Last 3 Months or Most Recently Relevant to Health Maintenance Results * eGFR (08/23/2024 1:08 PM CDT) [...] MD LAB BLOOD ORDERABLES Fin al Result [facility] Department [place] [address] * Differential, auto (08/23/2024 1:08 PM CDT) Neutrophil abs 3.78 1.50 - 6.50 K/cumm Comment:Testing performed by : [facility], [address] [place], [place] [phone] Lymphocyte abs 0.90 0.80 - 3.30 K/cumm CERNER [facility] Comment:Testing performed by : [facility], [address] [place], [place] [phone] Monocyte abs 0.42 0.20 - 0.80 K/cumm CERNER BJ Comment:Testing performed by : [facility], [address] [place], [place] [phone] Eosinophil abs 0.14 0.00 - 0.50 K/cumm CERNER BJ Comment:Testing performed by : [facility], [address] [place] [phone] Basophil abs 0.05 0.00 - 0.10 K/cumm CERNER BJ Comment:Testing performed by : [facility], [address] [place] [phone] Neutrophil pct 71.6 % CERNER BJ Comment: Interpretive Data Percent cell count reference ranges are not reported, since discordance with absolute values may lead to misinterpretation of CBC data. Current Interpretive Data was last revised on 2017. Testing performed by: [facility], [address] [place], [place] [phone] Lymphocyte pct 17.0 % CERNER BJ Comment: Interpretive Data Percent cell count reference ranges are not reported, since discordance with absolute values may lead to misinterpretation of CBC data. Current Interpretive Data was last revised on 2017. Testing performed by: [facility], [address] [place] [phone] Monocyte pct 7.9 % LISETH [facility]LE[facility] Comment: Interpretive Data Percent cell count reference ranges are not reported, since discordance with absolute values may lead to misinterpretation of CBC data. Current Interpretive Data was last revised on 2017. Testing performed by: [facility], [address] [place] [phone] Eosinophil pct 2.6 % LISETH VALLEJO Comment: Interpretive Data Percent cell count reference ranges are not reported, since discordance with absolute values may lead to misinterpretation of CBC data. Current Interpretive Data was last revised on 2017. Testing performed by: [facility], [address] [place] [phone] Basophil pct 1.0 % LISETH VALLEJO Comment: Interpretive Data Percent cell count reference ranges are not reported, since discordance with absolute values may lead to misinterpretation of CBC data. Current Interpretive Data was last revised on 2017. Testing performed by: [facility], [address] [place] [phone] Blood 08/23/2024 1:08 PM CDT 08/23/2024 1:12 PM CDT us Cem Howell MD LAB BLOOD ORDERABLES Fin al Result [facility] Department [place] [address] * (ABNORMAL) CBC with auto differential (08/23/2024 1:08 PM CDT) WBC 5.28 3.80 - 9.90 K/cumm Comment:Testing performed by : [facility], [address] [place] [phone] Hgb 13.3 13.0 - 17.5 g/dL LISETH VALLEJO Comment:Testing performed by : [facility], [address] [place], [place] [phone] Hct 39.1 38.9 - 50.3 % CERNER BJ Comment:Testing performed by : [facility], [address] [place], [place] [phone] Plt 172 150 - 400 K/cumm CERNER BJ Comment:Testing performed by : [facility], [address] [place], [place] [phone] MPV 8.1 6.8 - 10.4 fL CERNER BJ Comment:Testing performed by : [facility], [address] [place], [place] [phone] RBC 4.24(L) 4.30 - 5.80 M/cumm CERNER BJ Comment:Testing performed by : [facility], [address] [place], [place] [phone] MCV 92.3 81.3 - 96.4 fL CERNER BJ Comment:Testing performed by : [facility], [address] [place], [place] [phone] MCH 31.3 27.1 - 33.3 pg CERNER BJ Comment:Testing performed by : [facility], [address] [place], [place] [phone] MCHC 33.9 32.3 - 35.7 g/dL CERNER BJ Comment:Testing performed by : [facility], [address] [place], [place] [phone] RDW CV 14.0 11.1 - 14.9 % CERNER BJ Comment:Testing performed by : [facility], [address] [place] [address] NRBC abs 0.00 0.00 - 0.01 K/cumm CERNER BJ Comment:Testing performed by : [facility], [address] [place], [place] [phone] Blood 08/23/2024 1:08 PM CDT 08/23/2024 1:12 PM CDT Cem Howell MD LAB BLOOD ORDERABLES Fin al Result [facility] [place] [address] * (ABNORMAL) Total testosterone (08/23/2024 1:08 PM CDT) Testosterone 15.0(L) 193.0 - 740.0 ng/dL Blood 08/23/2024 1:08 PM CDT 08/23/2024 1:37 PM CDT Cem Howell MD LAB BLOOD ORDERABLES Fin al Result Performing Organization Address [facility] de Phone Number [facility] [place] [address] * PSA diagnostic (08/23/2024 1:08 PM CDT) [...] ORDERABLES Fin al Result Performing Organization Address [facility] Co de Phone Number [facility] [place] [address] * Comprehensive metabolic panel (08/23/2024 1:08 PM CDT) Sodium 144 135 - 145 mmol/L Potassium, pl 4.7 3.3 - 4.9 mmol/L [facility] Chloride 107 97 - 110 mmol/L [facility] CO2 28 22 - 32 mmol/L [facility] Anion gap 9 2 - 15 mmol/L [facility] BUN 21 6 - 25 mg/dL [facility] Creatinine 0.90 0.80 - 1.30 mg/dL [facility] Glucose 125 70 - 199 mg/dL [facility] Comment: Interpretive Data Fasting glucose >/= 126 [...] classification and Diagnosis of Diabetes Diabetes Care 2021; 46: S19-S40. Current interpretive data was last revised 2022. Calcium 9.5 8.5 - 10.3 mg/dL [facility] Bilirubin, total 0.2 0.1 - 1.2 mg/dL [facility] Protein, pl 7.2 6.5 - 8.5 g/dL [facility] Albumin 4.4 3.5 - 5.0 g/dL [facility] Alk phos 66 40 - 130 Units/L [facility] ALT 16 7 - 55 Units/L [facility] AST 25 10 - 50 Units/L [facility] Blood 08/23/2024 1:08 PM CDT 08/23/2024 1:15 PM CDT us Cem Howell MD LAB BLOOD ORDERABLES Fin al Result [facility] Department [place] [address] * Dexa Axial Skeleton Bone Density 1 or 2 Site (08/17/2024 1:53 PM CDT) Anatomical Region Laterality Modality Body N/A Radiographic Madalyn ging Narrative 08/17/2024 4:40 PM CDT Patient Name: Neeraj Restrepo Date of : 1945 Date of scan: 08/17/2024 Bone mineral density was performed on a [employer] Discovery Densitometer. Based on machine cross-calibration and precision studies the least significant changes of this densitometer is 0.024 g/cm2 at the spine, 0.020 g/cm2 at the total proximal femur, and 0.014g/cm2 at the forearm. HISTORY: This is a 78 y.o. male with a history of low bone mass and prostate cancer. He reports that he has been smoking cigarettes. He has been exposed to tobacco smoke. He has never used smokeless tobacco. Currently on treatment with vitamin D, previously treated with alendronate (Fosamax), denosumab (Prolia), and androgen deprivation therapy, and current complaint of back pain and leg pain. INDICATIONS: History of low bone mass and male over age 70. FINDINGS: BONE MINERAL DENSITY OF THE LUMBAR SPINE Bone Mineral Density (BMD) of the lumbar spine was measured from L1-L2 and the average density was calculated to be 0.885 gm/cm2. This corresponds to a T-score (standard deviations from the mean of young adults) of -1.5. When compared to the previous study of 07/20/2022 there has been a 0.043 gm/cm (5.2%) increase in bone density that is considered significant. BONE MINERAL DENSITY OF THE PROXIMAL FEMUR Bone Mineral Density (BMD) of the left hip total was found to be 0.738 gm/cm2. This corresponds to a T-score standard deviations from the mean of young adults of -2.0. Femoral neck is 0.621 gm/cm2 with a T-score (standard deviations from the mean of young adults) of -2.3. When compared to the previous study of 07/20/2022 there has been a -0.083 gm/cm (-10.1%) decrease in bone density that is considered significant. BONE MINERAL DENSITY OF THE FOREARM Bone Mineral density (BMD) of the left proximal 1/3 of the radius measures 0.693 gm/cm2. This corresponds to a T-score (standard deviations from the mean of young adults) of -2.3. When compared to the previous study of 07/20/2022 there has been a -0.021 gm/cm (-3.0%) decrease in bone density that is considered significant. A forearm bone density study was performed in addition to the routine study due to department forearm protocol. SUMMARY: Bone mineral density shows evidence of low bone mass at the lumbar spine, proximal femur, and forearm and moderately increased fracture risk (Osteopenia). There is a significant increase noted in the spine and a significant decrease noted in the hip and forearm since the previous exam. L3-L4 excluded from bone mineral density analysis of the lumbar spine due to bone density being more than 1 standard deviation discrepant relative to one adjacent vertebra. Clinical correlation is recommended. ADDITIONAL COMMENTS: Postmenopausal Women and Men Over 50: Diagnostic criteria: Osteoporosis: BMD at or below -2.5 T-score; Osteopenia (low bone mass): BMD between -1.0 and -2.5 T-score. If the patient has a history of a fragility fracture, a fracture that occurred with trauma equivalent to a fall from a standing position or less, then the diagnosis is osteoporosis regardless of bone density. The history and data sections of the bone mineral density scan were prepared by Dominique Weeks(Claire)(Fidelia)(BD) CBDT who is accredited by the International Society of Clinical Densitometry. The overall patient assessment and scan interpretation were performed by Kelly Harris M.D. who is certified by the International Society of Clinical Densitometry. [id number] us Cem Hoewll MD IMG DXA PROCEDURES Final Result * eGFR (05/31/2024 12:58 PM ACCOUNTANT AUDITOR) eGFR 85 >=60 mL/min/1. 73 m2 Comment: Interpretive Data [...] of Race in Diagnosing Kidney Disease, JASN 202). The CKD-EPI equation should not be used for patients with unstable renal function and has not been validated in children and those over 70. Current interpretive data was last reviewed 2021. Blood 05/31/2024 12:5 8 PM ACCOUNTANT AUDITOR 05/31/2024 1:01 PM ACCOUNTANT AUDITOR us Cem Howell MD LAB BLOOD ORDERABLES Fin al Result [facility] Department [place] [address] * Differential, auto (05/31/2024 12:58 PM ACCOUNTANT AUDITOR) Neutrophil abs 4.2 1.5 - 6.5 K/cumm Comment:Testing performed by : [facility], [address] [place], [place] [phone] Lymphocyte abs 0.9 0.8 - 3.3 K/cumm CERNER BJ Comment:Testing performed by : [facility], [address] [place], [place] [phone] Monocyte abs 0.4 0.2 - 0.8 K/cumm CERNER [facility] Comment:Testing performed by : [facility], [address] [place] [phone] Eosinophil abs 0.1 0.0 - 0.5 K/cumm CERNER BJ Comment:Testing performed by : [facility], [address] [place] [phone] Basophil abs 0.1 0.0 - 0.1 K/cumm CERNER BJ Comment:Testing performed by : [facility], [address] [place], [place] [phone] Neutrophil pct 74.8 % CERNER BJ Comment: Interpretive Data Percent cell count reference ranges are not reported, since discordance with absolute values may lead to misinterpretation of CBC data. Current Interpretive Data was last revised on 2017. Testing performed by: [facility], [address] [place] [phone] Lymphocyte pct 15.3 % CERSAURABH VALLEJO Comment: Interpretive Data Percent cell count reference ranges are not reported, since discordance with absolute values may lead to misinterpretation of CBC data. Current Interpretive Data was last revised on 2017. Testing performed by: [facility], [address] [place] [phone] Monocyte pct 7.4 % CERSAURABH VALLEJO Comment: Interpretive Data Percent cell count reference ranges are not reported, since discordance with absolute values may lead to misinterpretation of CBC data. Current Interpretive Data was last revised on 2017. Testing performed by: [facility], [address] [place] [phone] Eosinophil pct 1.6 % LISETH VALLEJO Comment: Interpretive Data Percent cell count reference ranges are not reported, since discordance with absolute values may lead to misinterpretation of CBC data. Current Interpretive Data was last revised on 2017. Testing performed by: [facility], [address] [place] [phone] Basophil pct 0.9 % LISETH VALLEJO Comment: Interpretive Data Percent cell count reference ranges are not reported, since discordance with absolute values may lead to misinterpretation of CBC data. Current Interpretive Data was last revised on 2017. Testing performed by: [facility], [address] [place] [phone] Blood 05/31/2024 12:5 8 PM ACCOUNTANT AUDITOR 05/31/2024 12:59 PM ACCOUNTANT AUDITOR us Cem Howell MD LAB BLOOD ORDERABLES Fin al Result LISETH VALLEJO [facility] Department [place] [address] * CBC with auto differential (05/31/2024 12:58 PM ACCOUNTANT AUDITOR) WBC 5.6 3.8 - 9.9 K/cumm Comment:Testing performed by : [facility], [address] [place] [address] Hgb 14.3 13.0 - 17.5 g/dL CERNER BJ Comment:Testing performed by : [facility], [address] [place], [place] [phone] Hct 42.3 38.9 - 50.3 % CERNER BJ Comment:Testing performed by : [facility], [address] [place], [place] [phone] Plt 175 150 - 400 K/cumm CERNER BJ Comment:Testing performed by : [facility], [address] [place] [address] MPV 8.3 6.8 - 10.4 fL CERNER BJ Comment:Testing performed by : [facility], [address] [place], [place] [phone] RBC 4.54 4.30 - 5.80 M/cumm CERNER BJ Comment:Testing performed by : [facility], [address] [place] [address] MCV 93.1 81.3 - 96.4 fL CERNER BJ Comment:Testing performed by : [facility], [address] [place], [place] [phone] MCH 31.5 27.1 - 33.3 pg CERNER BJ Comment:Testing performed by : [facility], [address] [place] [address] MCHC 33.8 32.3 - 35.7 g/dL CERNER BJ Comment:Testing performed by : [facility], [address] [place] [address] RDW CV 14.1 11.1 - 14.9 % CERNER BJ Comment:Testing performed by : [facility], [address] [place] [address] NRBC abs 0.00 0.00 - 0.01 K/cumm CERNER BJ Comment:Testing performed by : [facility], [address] [place] [address] Blood 05/31/2024 12:5 8 PM ACCOUNTANT AUDITOR 05/31/2024 12:59 PM ACCOUNTANT AUDITOR Cem Howell MD LAB BLOOD ORDERABLES Fin al Result Performing Organization Address [facility] Co de Phone Number LISETH [facility] [place] [address] * (ABNORMAL) Total testosterone (05/31/2024 12:58 PM ACCOUNTANT AUDITOR) Testosterone <5.0(L) 193.0 - 740.0 ng/dL Blood 05/31/2024 12:5 8 PM ACCOUNTANT AUDITOR 05/31/2024 1:54 PM ACCOUNTANT AUDITOR Cem Howell MD LAB BLOOD ORDERABLES Fin al Result Performing Organization Address [facility] de Phone Number [facility] [place] [address] * PSA diagnostic (05/31/2024 12:58 PM ACCOUNTANT AUDITOR) PSA-Total <0.02 <=6.20 ng/mL Comment: Interpretive Data [...] Current interpretive data last revised 21. Blood 05/31/2024 12:5 8 PM ACCOUNTANT AUDITOR 05/31/2024 1:01 PM ACCOUNTANT AUDITOR Cem Howell MD LAB BLOOD ORDERABLES Fin al Result Performing Organization Address [facility] de Phone Number LISETH [facility] [place] [address] * Comprehensive metabolic panel (05/31/2024 12:58 PM ACCOUNTANT AUDITOR) Sodium 144 135 - 145 mmol/L Potassium, pl 4.9 3.3 - 4.9 mmol/L [facility] Chloride 106 97 - 110 mmol/L [facility] CO2 30 22 - 32 mmol/L [facility] Anion gap 8 2 - 15 mmol/L [facility] BUN 22 6 - 25 mg/dL [facility] Creatinine 0.92 0.80 - 1.30 mg/dL [facility] Glucose 122 70 - 199 mg/dL [facility] Comment: Interpretive Data Fasting glucose >/= 126 [...] classification and Diagnosis of Diabetes Diabetes Care 2021; 46: S19-S40. Current interpretive data was last revised 2022. Calcium 10.0 8.5 - 10.3 mg/dL [facility] Bilirubin, total 0.4 0.1 - 1.2 mg/dL [facility] Protein, pl 7.5 6.5 - 8.5 g/dL [facility] Albumin 4.6 3.5 - 5.0 g/dL [facility] Alk phos 72 40 - 130 Units/L [facility] ALT 15 7 - 55 Units/L [facility] AST 23 10 - 50 Units/L [facility] Blood 05/31/2024 12:5 8 PM ACCOUNTANT AUDITOR 05/31/2024 1:01 PM ACCOUNTANT AUDITOR us Cem Howell MD LAB BLOOD ORDERABLES Fin al Result [facility] Department [place] [address] * CT chest abdomen pelvis with contrast (03/31/2023 10:34 AM ACCOUNTANT AUDITOR) Anatomical Region Laterality Modality Body N/A Computed Tomogra phy 03/31/2023 11:0 1 AM ACCOUNTANT AUDITOR Impressions 03/31/2023 12:05 PM ACCOUNTANT AUDITOR No CT evidence of metastatic disease in the chest abdomen and pelvis Dictated by: Mercedes Cabral M.D. The radiology attending physician has personally reviewed this study, and had reviewed and/or edited this written report and agrees with it. Electronically signed by: Rui Lin M.D. Narrative 03/31/2023 12:05 PM ACCOUNTANT AUDITOR EXAMINATION: Computed tomography of the chest, abdomen and pelvis with intravenous contrast HISTORY: 77-year-old male with metastatic prostate cancer status post radical prostatectomy (2009), radiation therapy to the pelvic lymph nodes, vertebral body L4 and hormonal therapy. Evaluate treatment response. TECHNIQUE: Transaxial computed tomographic images of the chest, abdomen and pelvis were obtained with intravenous contrast according to the standard protocol after the uneventful administration of 75 mL Opti-Ray 350 intravenous contrast. COMPARISON: Multiple prior CT examinations, most recent 05/26/2021 FINDINGS: Chest: Both thyroid lobes are normal. Subcentimeter right thyroid nodule, less than 1.5 cm in size. Heart and great vessels are normal in size and caliber. No pericardial effusion. Calcified atherosclerosis along the aortic arch. No supraclavicular, mediastinal, hilar, axillary lymphadenopathy. No pulmonary consolidation. No pleural effusion. No pneumothorax. Right hilar, lower lobe calcified granuloma consistent with chronic granulomatous disease. Abdomen/Pelvis: Spleen, pancreas, liver and gallbladder are normal. No suspicious hepatic lesions. The portal veins and associated branches are patent. No intrahepatic or extrahepatic biliary ductal dilation. Postsurgical changes of sigmoid colonic resection. No evidence of bowel obstruction. Colonic diverticulosis without evidence of diverticulitis. No periappendiceal inflammation. No lymphadenopathy in the abdomen and pelvis. No intraperitoneal free fluid or free air. Stable bilateral adrenal gland nodularity, favored represent adrenal adenomas. Both kidneys is symmetric enhancement with no nephrolithiasis or hydronephrosis. Multiple right kidney hypoattenuating simple renal cysts. Multiple left kidney parapelvic cyst. No infrarenal abdominal aortic aneurysm. Scattered calcified and noncalcified infrarenal abdominal aorta atherosclerosis. Postsurgical changes of prostatectomy with radiation beads in the pelvis. Bladder is normal with mild bladder wall thickening secondary to radiation changes. No new suspicious osseous lesions. Stable endplate sclerosis and L5/sacrum, superimposed on degenerative changes. Unchanged sclerosis at the pubic symphysis, left ilium. Procedure Note Rui Lin MD - 03/31/2023 EXAMINATION: Computed tomography of the chest, abdomen and pelvis with intravenous contrast HISTORY: 77-year-old male with metastatic prostate cancer status post radical prostatectomy (2009), radiation therapy to the pelvic lymph nodes, vertebral body L4 and hormonal therapy. Evaluate treatment response. TECHNIQUE: Transaxial computed tomographic images of the chest, abdomen and pelvis were obtained with intravenous contrast according to the standard protocol after the uneventful administration of 75 mL Opti-Ray 350 intravenous contrast. COMPARISON: Multiple prior CT examinations, most recent 05/26/2021 FINDINGS: Chest: Both thyroid lobes are normal. Subcentimeter right thyroid nodule, less than 1.5 cm in size. Heart and great vessels are normal in size and caliber. No pericardial effusion. Calcified atherosclerosis along the aortic arch. No supraclavicular, mediastinal, hilar, axillary lymphadenopathy. No pulmonary consolidation. No pleural effusion. No pneumothorax. Right hilar, lower lobe calcified granuloma consistent with chronic granulomatous disease. Abdomen/Pelvis: Spleen, pancreas, liver and gallbladder are normal. No suspicious hepatic lesions. The portal veins and associated branches are patent. No intrahepatic or extrahepatic biliary ductal dilation. Postsurgical changes of sigmoid colonic resection. No evidence of bowel obstruction. Colonic diverticulosis without evidence of diverticulitis. No periappendiceal inflammation. No lymphadenopathy in the abdomen and pelvis. No intraperitoneal free fluid or free air. Stable bilateral adrenal gland nodularity, favored represent adrenal adenomas. Both kidneys is symmetric enhancement with no nephrolithiasis or hydronephrosis. Multiple right kidney hypoattenuating simple renal cysts. Multiple left kidney parapelvic cyst. No infrarenal abdominal aortic aneurysm. Scattered calcified and noncalcified infrarenal abdominal aorta atherosclerosis. Postsurgical changes of prostatectomy with radiation beads in the pelvis. Bladder is normal with mild bladder wall thickening secondary to radiation changes. No new suspicious osseous lesions. Stable endplate sclerosis and L5/sacrum, superimposed on degenerative changes. Unchanged sclerosis at the pubic symphysis, left ilium. IMPRESSION: No CT evidence of metastatic disease in the chest abdomen and pelvis Dictated by: Mercedes Cabral M.D. The radiology attending physician has personally reviewed this study, and had reviewed and/or edited this written report and agrees with it. Electronically signed by: Rui Lin M.D. us Ovidio Aguirre MD IMG CT PROCEDURES Final Result from Last 3 Months or Most Recently Relevant to Health Maintenance Insurance [facility] MEDICARE T MEDICARE [facility] MEDICARE ADVANTAGE [facility] MEDICARE Address: [address] [address] [place] [address] MEDICARE [facility] MEDICARE Care Teams [place] Tour Guide Relationship Specialty Start Date End Date Ferny Richmond MD PCP - General 05/17/16
--- OUTSIDE RECORDS SUMMARY | 2024-08-24 09:35 | XMS_ITS | Encounter Summary ---
Author Organization [facility] Address [address] [place] [address] Phone Care Team Providers Care Processing Lead Name Role Phone Ferny Richmond MD Primary Care Provider Encounter Details Date Type Department Care Team (Latest Contact Info) Description 11/11/2022 Orders Only [facility] Scanning, Provider Social History Tobacco Use Types Packs/Day Years Used Date Smoking Tobacco: Every Day Cigarettes Smokeless Tobacco: Never Alcohol Use Standard Drinks/Week Comments Yes 0 (1 standard drink = 0.6 oz pur e alcohol) occasionally Sex and Gender Information Value Date Recorded Sex Assigned at Not on file 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 Gender Identity Not on file Sexual Orientation Not on file documented as of this encounter Plan of Treatment Not on file documented as of this encounter Procedures Procedure Name Priority Date/Time Associated Diagnosis Comments SCAN - RADIOLOGY/IMAGING 11/11/2022 documented in this encounter Results * SCAN - RADIOLOGY/IMAGING (11/11/2022) Anatomical Region Laterality Modality Other us Provider Scanning Edited Result - Final documented in this encounter Visit Diagnoses Not on filedocumented in this encounter Care Teams Processing Lead Relationship Specialty Start Date End Date Ferny Richmond MD PCP - General 05/17/16 documented as of this encounter
--- OUTSIDE RECORDS SUMMARY | 2024-08-24 09:35 | XMS_ITS | CONTINUITY OF CARE DOCUMENT ---
Author Name misa, misa Address Unknown Organization [facility] Address [address] [place] [address] Phone [phone] Care Team Providers Care Assistant Press Operator Name Role Phone Eddy DANIEL, Grant Unavailable [phone] ANA CORRAL MD Unavailable ANA CORRAL MD Unavailable PROBLEMS Condition Status Date Provider Notes Hyperlipidemia active Edin Ahmedzai Hypertension active Dein Ahmedzai Osteopenia active Edin Ahmedzai Prostate cancer s/p prostatectomy 2010 active Edin Ahmedzai Anxiety active Edin Ahmedzai Tobacco abuse active Edin Ahmedzai Family hx of heart disease active Edinmahesh mitchell Chest pain--cath 2022 no obstructive disease active 20 18/10/30 Edin Ahmedzai ENCOUNTERS Date Type Provider Location Encounter Diag nosis - In-person encounter Office Visit Grant Kam MD [facility] Office Chest pain--cath 202 no obstructive diseaseFamily hx of heart diseaseTobacco abuseAnxiety VITAL SIGNS Date Observation Value Provider Body Mass Index (Ratio) 24.96 kg/m2 Cory Kam MD blood pressure, diastolic 68 mm[Hg] Roberta nkLogic blood pressure, systolic 114 mm[Hg] Maryann kLogic blood pressure, cuff size regular Va osmany Carlton blood pressure, diastolic 68 mm[Hg] Va lerverónica Carlton blood pressure, systolic 114 mm[Hg] Melissa Vincent pulse rate 60 /min Fadia Vincent respiratory rate E&M 14 /min Fadia Vincent oxygen saturation, oximetry 98 % Fadia Vincent height E&M 70 [in_i] Fadia Vincent weight E&M 174 [lb_av] Fadia Vincent HISTORY OF MEDICATION USE Medication Status Instructions Dates Provider Indications Com ments ranolazine 500 mg tablet extended release 12 hr active TAKE 1 TABLET BY MOUTH TWICE A DAY Edin Mcdonald alprazolam 0.5 mg tablet active as needed Fadia Carlton lisinopril 40 mg tablet active TAKE 1 TABLET BY MOUTH EVERY DAY Fadia Carlton Lupron Depot 3.75 mg syringe kit active as directed for cancer Fadia Carlton One A Day Men Complete 240-25-300 mcg tablet active one pill once daily Fadia Carlton pantoprazole 40 mg tablet,delayed release (DR/EC) active one pill once daily Fadia Carlton metoprolol tartrate 25 mg tablet active one pill twice daily Fadia Carlton sertraline 50 mg tablet active one pill once daily Fadia Carlton trazodone 100 mg tablet active one pill once daily Fadia Carlton Vitamin D3 25 mcg (1,000 unit) tablet active one pill once daily Fadia Carlton INSURANCE PROVIDERS Payer name Policy type / Coverage type [facility] alliance party ID [employer] US MEDICARE Commercial insurance company 1 [id number] TREATMENT PLAN Date Name Performer Cardiology Edin Mcdonald Cardiology Edin Mcdonald Cardiology Edin Mcdonald Cardiology: H is updated medication list for this problem includes: Lisinopril 40 Mg Tablet (Lisinopril) ..... Take 1 tablet by mouth every day Metoprolol Tartrate 25 Mg Tablet (Metoprolol tartrate) ..... One pill twice daily Edin Mcdonald Cardiology: H is updated medication list for this problem includes: Ranolazine 500 Mg Tablet Extended Release 12 Hr (Ranolazine) ..... Take 1 tablet by mouth twice a day Lisinopril 40 Mg Tablet (Lisinopril) ..... Take 1 tablet by mouth every day Metoprolol Tartrate 25 Mg Tablet (Metoprolol tartrate) ..... One pill twice daily Edin Mcdonald
--- OUTSIDE RECORDS SUMMARY | 2024-08-24 09:35 | XMS_ITS | Clinical Summary ---
Author Organization [facility] Address [address] [place] [address] Care Team Providers Care Police Records Clerk Name Role Phone Ferny Richmond MD Primary Care Provider Source Comments [facility],non-owned Affiliates and Associated Physician Practices is amultiple site organization consisting of ambulatory clinics and hospital sitesin [place], [place], [place] and [place]. This disclosure is being madepursuant to the Care Everywhere program and may not contain all information available regarding this patient. 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 Gender Identity Not on file Sexual Orientation Not on file Plan of Treatment Health Maintenance Due Date Last Done Comments HEPATITIS C SCREENING 09/09/1963 DTAP/TDAP/TD VACCINES (1 - Tdap) 1964 PNEUMOCOCCAL VACCINE 50+ (1 of 1 - PCV) 09/14/1995 ZOSTER VACCINE (1 of 2) 09/14/1995 Respiratory Syncytial Virus (RSV) Vaccine Pt: or over 60 yrs (1 - 1-dose 75+ series) 2020 COVID-19 VACCINE (2 - 2023-2 5 season) 2023 06/26/2020 DEPRESSION SCREENING 03/28/2024 INFLUENZA VACCINE (Season Ended) 2024 HEPATITIS B VACCINE Aged Out No longe r eligible based on patient's age to complete this topic HIB VACCINE Aged Out No longer eligi ble based on patient's age to complete this topic HPV VACCINE Aged Out No longer eligi ble based on patient's age to complete this topic MENINGOCOCCAL (Group B) VACC INE SHARED DECISION-MAKING Aged Out No longer eligibl e based on patient's age to complete this topic MENINGOCOCCAL GROUPS A/C/Y/W VACCINE Aged Out No longer eligible b ased on patient's age to complete this topic Insurance [facility] MANAGED MEDICARE ADV Care Teams Police Records Clerk Relationship Specialty Start Date End Date Ferny Richmond MD [address] [place] [address] [address] [place] [address] PCP - General Internal Medicine 10/17/20
--- OUTSIDE RECORDS SUMMARY | 2024-08-24 09:35 | XMS_ITS | Clinical Summary ---
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 12/14/2022 Arthralgia of [...] from CV risk stratification if r/o'd for [place] Anemia 07/03/2021 Benign essential hypertension 02/12/2021 Cigarette [...] (asked for PSA check) 03/07/2009- Prostate biopsy (Jason 3+3) 04/17/09- Laparascopic radical prostatectomy; laparascopic bilateral pelvic lymphadenectomy Pathology [id number], Houston 3+4, with positive LVI and positive seminal [...] prostatectomy 2021 PSA undetectable Followed by PCP Encounters Date Type Department Care Team Description 08/23/2024 2:00 PM CDT Office Visit [facility] [address] Floor 5 [place] [address] Cem Howell MD Cancer of prostate (HCC) (Primary Dx) 08/23/2024 1:15 PM CDT Lab [facility] Lab [address] [place] [address] Floor 5 [place] [address] Cancer of prostate (HCC) 08/23/2024 1:00 PM CDT Lab [facility] - Lab Collection [address] [place] [address] Floor 5 [place] [address] Cancer of prostate (HCC) 08/17/2024 2:10 PM CDT Clinical Support [facility] [address] 5th [place] [address] [place] [address] Osteopenia of multiple sites (Primary Dx); Cancer of prostate (HCC) 06/26/2024 1:00 PM CDT Office Visit [facility] [address] [place] [phone] Flory Krishnan NP Other chest pain (Primary Dx) 05/31/2024 2:00 PM TELEPHONE ANSWERER Office Visit [facility] [address] [place] [address] Floor 5 [place] [address] Cem Howell MD Cancer of prostate (HCC) (Primary Dx); Malignant neoplasm of prostate (HCC) 05/31/2024 1:15 PM TELEPHONE ANSWERER Lab [facility] - Lab Collection [address] [place] [address] Floor 5 [place] [address] Malignant neoplasm of prostate (HCC) 05/31/2024 1:00 PM TELEPHONE ANSWERER Lab [facility] [address] [place] [address] Floor 5 [place] [address] Malignant neoplasm of prostate (HCC) from Last 3 Months Immunizations Immunization Administration Dates Next Due AnovaStorm (J&J) SARS-CoV-2 Vaccination 03/30/2021, 06/26/2020 Sars-CoV-2, Unspecified 07/20/2020 Tdap 07/07/2014 Surgical History Surgery Date Site/Laterality Comments KNEE SURGERY Knee Surgery - (Added by TW Conv) SC LAP,PROSTATECTOMY,RADICAL,W/NE RVE SPARE,INCL ROBOTIC Prostatect Retropubic Radical W/ Nerve Sparing Laparoscopic - robotic; [place] 4+3, (+) seminal vesicle involvment, T3b (Added by TW Conv) Medical History Medical History Date Comments Nontraumatic rupture of quadriceps tendon Rupture Of The Quadriceps Tendon Of The Right Leg - (Added by TW Conv) Anxiety disorder Anxiety - (Adde d by TW Conv) Personal history of other di seases of the circulatory system History of hypertension - (A dded by TW Conv) Personal history of other me ntal and behavioral disorders History of depression - (Add ed by TW Conv) Cancer (HCC) Prostate cancer (HCC) Bone cancer (HCC) Arthritis Hypertension Depression Dizziness High blood pressure Headache Migraine Hyperlipidemia Family History Medical History Relation Name Comments Prostate cancer Brother Family histo ry of prostate cancer - x 2 (Added by TW Conv) Heart disease Father Kidney disease Mother Relation Name Status Comments Brother Alive Father Mother Social History Tobacco Use Types Packs/Day Years [...] on file Legal Sex Male 12:17 AM TELEPHONE ANSWERER Gender Identity Not on file Sexual Orientation Not on file Obstetrics History Last Filed Vital Signs Vital Sign Reading [...] 06/26/2024 1:03 PM CDT Plan of Treatment Health Maintenance Due Date Last Done Comments Depression Screening 1945 Fall Risk Assessment 1945 Hepatitis C Screening 1945 Hepatitis B Screening 09/14/1963 Pneumococcal vaccine 65+ (1 of 2 - PCV) 1964 Zoster Vaccine (1 of 2) 09/14/1995 Well Visit 65+ 2010 Covid-19 Vaccine (4 - 2023-2 5 season) 2023 03/30/2021, 07/20/2020, 06/26/2020 DTaP/Tdap/Td Vaccine (2 - Td or Tdap) 07/07/2024 07/07/2014 Influenza Vaccine (Season Ended) 2024 Abdominal Aortic Aneurysm (A AA) Screen Completed 03/31/2023, 05/26/2021, 05/01/2019, Additional history exists Procedures Procedure Name Priority Date/Time Associated Diagnosis [...] prostate (HCC) EGFR Routine 05/31/2024 12:58 PM TELEPHONE ANSWERER Malignant neoplasm of prostate (HCC) DIFFERENTIAL AUTO Routine 05/31/2024 12: 58 PM TELEPHONE ANSWERER Malignant neoplasm of prostate (HCC) CBC WITH AUTO DIFFERENTIAL Routine 05/31/2024 12:58 PM TELEPHONE ANSWERER Malignant neoplasm of prostate (HCC) COMPREHENSIVE METABOLIC PANEL Routine 05/31/2024 12:58 PM TELEPHONE ANSWERER Malignant neoplasm of prostate (HCC) PSA DIAGNOSTIC Routine 05/31/2024 12:58 PM TELEPHONE ANSWERER Malignant neoplasm of prostate (HCC) TOTAL TESTOSTERONE Routine 05/31/2024 12 :58 PM TELEPHONE ANSWERER Malignant neoplasm of prostate (HCC) CT CHEST ABDOMEN PELVIS W CONTRAST Schedule Routine, Read Routine (OP Routine) 03/31/2023 10:34 AM TELEPHONE ANSWERER Cancer of prostate (HCC) from Last 3 [...] LAB BLOOD ORDERABLES Fin al Result [facility] Department [place] [address] * Differential, auto (08/23/2024 1:08 PM CDT) Neutrophil abs 3.78 1.50 - 6.50 K/cumm Comment:Testing performed by : [facility], [address] [place] [phone] Lymphocyte abs 0.90 0.80 - 3.30 K/cumm [facility] Comment:Testing performed by : [facility], [address] [place] [phone] Monocyte abs 0.42 0.20 - 0.80 K/cumm [facility] Comment:Testing performed by : [facility], [address] [place], [place] [id number] Eosinophil abs 0.14 0.00 - 0.50 K/cumm [facility] Comment:Testing performed by : [facility], [address] [place] [phone] Basophil abs 0.05 0.00 - 0.10 K/cumm [facility] Comment:Testing performed by : [facility], [address] [place] [phone] Neutrophil pct 71.6 % [facility] Comment: Interpretive Data Percent cell count reference ranges are not reported, since discordance with absolute values may lead to misinterpretation of CBC data. Current Interpretive Data was last revised on 2017. Testing performed by: [facility], [address] [place] [phone] Lymphocyte pct 17.0 % [facility] Comment: Interpretive Data Percent cell count reference ranges are not reported, since discordance with absolute values may lead to misinterpretation of CBC data. Current Interpretive Data was last revised on 2017. Testing performed by: [facility], [address] [place] [phone] Monocyte pct 7.9 % [facility] Comment: Interpretive Data Percent cell count reference ranges are not reported, since discordance with absolute values may lead to misinterpretation of CBC data. Current Interpretive Data was last revised on 2017. Testing performed by: [facility], [address] [place] [phone] Eosinophil pct 2.6 % [facility] Comment: Interpretive Data Percent cell count reference ranges are not reported, since discordance with absolute values may lead to misinterpretation of CBC data. Current Interpretive Data was last revised on 2017. Testing performed by: [facility], [address] [place] [address] Basophil pct 1.0 % [facility] Comment: Interpretive Data Percent cell count reference ranges are not reported, since discordance with absolute values may lead to misinterpretation of CBC data. Current Interpretive Data was last revised on 2017. Testing performed by: [facility], [address] [place] [address] Blood 08/23/2024 1:08 PM CDT 08/23/2024 1:12 PM CDT us Cem Howell MD LAB BLOOD ORDERABLES Fin al Result [facility] Department [place] [address] * (ABNORMAL) CBC with auto differential (08/23/2024 1:08 PM CDT) WBC 5.28 3.80 - 9.90 K/cumm Comment:Testing performed by : [facility], [address] [place] [address] Hgb 13.3 13.0 - 17.5 g/dL [facility] Comment:Testing performed by : [facility], [address] [place] [address] Hct 39.1 38.9 - 50.3 % [facility] Comment:Testing performed by : [facility], [address] [place] [address] Plt 172 150 - 400 K/cumm [facility] Comment:Testing performed by : [facility], [address] [place], [place] [phone] MPV 8.1 6.8 - 10.4 fL [facility] Comment:Testing performed by : [facility], [address] [place], [place] [phone] RBC 4.24(L) 4.30 - 5.80 M/cumm [facility] Comment:Testing performed by : [facility], [address] [place], [place] [phone] MCV 92.3 81.3 - 96.4 fL [facility] Comment:Testing performed by : [facility], [address] [place], [place] [phone] MCH 31.3 27.1 - 33.3 pg [facility] Comment:Testing performed by : [facility], [address] [place], [place] [phone] MCHC 33.9 32.3 - 35.7 g/dL [facility] Comment:Testing performed by : [facility], [address] [place] [address] RDW CV 14.0 11.1 - 14.9 % [facility] Comment:Testing performed by : [facility], [address] [place] [address] NRBC abs 0.00 0.00 - 0.01 K/cumm [facility] Comment:Testing performed by : [facility], [address] [place] [address] Blood 08/23/2024 1:08 PM CDT 08/23/2024 1:12 PM CDT us Cem Howell MD LAB BLOOD ORDERABLES Fin al Result [facility] Department [place] [address] * (ABNORMAL) Total testosterone (08/23/2024 1:08 PM CDT) Testosterone 15.0(L) 193.0 - 740.0 ng/dL Blood 08/23/2024 1:08 PM CDT 08/23/2024 1:37 PM CDT Cem Howell MD LAB BLOOD ORDERABLES Fin al Result Performing Organization Address [facility] de Phone Number [facility] [place] [address] * PSA diagnostic (08/23/2024 1:08 PM CDT) [facility] PSA-Total <0.02 <=6.20 ng/mL Comment: Interpretive Data [...] ORDERABLES Fin al Result Performing Organization Address [facility] de Phone Number [facility] [place] [address] * Comprehensive metabolic panel (08/23/2024 1:08 PM CDT) [facility] Sodium 144 135 - 145 mmol/L Potassium, pl 4.7 3.3 - 4.9 mmol/L [facility] Chloride 107 97 - 110 mmol/L [facility] CO2 28 22 - 32 mmol/L [facility] Anion gap 9 2 - 15 mmol/L [facility] BUN 21 6 - 25 mg/dL [facility] Creatinine 0.90 0.80 - 1.30 mg/dL [facility] Glucose 125 70 - 199 mg/dL [facility] Comment: Interpretive Data Fasting glucose >/= [...] 2022. Calcium 9.5 8.5 - 10.3 mg/dL [facility] Bilirubin, total 0.2 0.1 - 1.2 mg/dL [facility] Protein, pl 7.2 6.5 - 8.5 g/dL [facility] Albumin 4.4 3.5 - 5.0 g/dL [facility] Alk phos 66 40 - 130 Units/L [facility] ALT 16 7 - 55 Units/L [facility] AST 25 10 - 50 Units/L [facility] Blood 08/23/2024 1:08 PM CDT 08/23/2024 1:15 PM CDT us Cem Howell MD LAB BLOOD ORDERABLES Fin al Result [facility] Department [place] [address] * Dexa Axial Skeleton Bone Density 1 or 2 Site (08/17/2024 1:53 PM CDT) Anatomical Region Laterality Modality Body N/A Radiographic Madalyn ging Narrative 08/17/2024 4:40 PM CDT Patient Name: Neeraj Restrepo Date of : 1945 Date of scan: 08/17/2024 Bone mineral density was performed on a [employer] Discovery Densitometer. Based on machine cross-calibration and [...] by the International Society of Clinical Densitometry. [id number] us Cem Howell MD IMG DXA PROCEDURES Final Result * eGFR (05/31/2024 12:58 PM TELEPHONE ANSWERER) eGFR 85 >=60 mL/min/1. 73 m2 Comment: [...] reviewed 2021. Blood 05/31/2024 12:5 8 PM TELEPHONE ANSWERER 05/31/2024 1:01 PM TELEPHONE ANSWERER us Cem Howell MD LAB BLOOD ORDERABLES Fin al Result [facility] Department [place] [address] * Differential, auto (05/31/2024 12:58 PM TELEPHONE ANSWERER) Neutrophil abs 4.2 1.5 - 6.5 K/cumm Comment:Testing performed by : [facility], [address] [place], [place] [phone] Lymphocyte abs 0.9 0.8 - 3.3 K/cumm [facility] Comment:Testing performed by : [facility], [address] [place] [phone] Monocyte abs 0.4 0.2 - 0.8 K/cumm [facility] Comment:Testing performed by : [facility], [address] [place], [place] [phone] Eosinophil abs 0.1 0.0 - 0.5 K/cumm [facility] Comment:Testing performed by : [facility], [address] [place] [phone] Basophil abs 0.1 0.0 - 0.1 K/cumm [facility] Comment:Testing performed by : [facility], [address] [place] [phone] Neutrophil pct 74.8 % [facility] Comment: Interpretive Data Percent cell count reference ranges are not reported, since discordance with absolute values may lead to misinterpretation of CBC data. Current Interpretive Data was last revised on 2017. Testing performed by: [facility], [address] [place] [phone] Lymphocyte pct 15.3 % [facility] Comment: Interpretive Data Percent cell count reference ranges are not reported, since discordance with absolute values may lead to misinterpretation of CBC data. Current Interpretive Data was last revised on 2017. Testing performed by: [facility], [address] [place] [phone] Monocyte pct 7.4 % [facility] Comment: Interpretive Data Percent cell count reference ranges are not reported, since discordance with absolute values may lead to misinterpretation of CBC data. Current Interpretive Data was last revised on 2017. Testing performed by: [facility], [address] [place] [phone] Eosinophil pct 1.6 % [facility] Comment: Interpretive Data Percent cell count reference ranges are not reported, since discordance with absolute values may lead to misinterpretation of CBC data. Current Interpretive Data was last revised on 2017. Testing performed by: [facility], [address] [place] [phone] Basophil pct 0.9 % [facility] Comment: Interpretive Data Percent cell count reference ranges are not reported, since discordance with absolute values may lead to misinterpretation of CBC data. Current Interpretive Data was last revised on 2017. Testing performed by: [facility], [address] [place] [phone] Blood 05/31/2024 12:5 8 PM TELEPHONE ANSWERER 05/31/2024 12:59 PM TELEPHONE ANSWERER us Cem Howell MD LAB BLOOD ORDERABLES Fin al Result [facility] Department [place] [address] * CBC with auto differential (05/31/2024 12:58 PM TELEPHONE ANSWERER) WBC 5.6 3.8 - 9.9 K/cumm Comment:Testing performed by : [facility], [address] [place] [phone] Hgb 14.3 13.0 - 17.5 g/dL [facility] Comment:Testing performed by : [facility], [address] [place] [phone] Hct 42.3 38.9 - 50.3 % [facility] Comment:Testing performed by : [facility], [address] [place] [address] Plt 175 150 - 400 K/cumm [facility] Comment:Testing performed by : [facility], [address] [place] [address] MPV 8.3 6.8 - 10.4 fL [facility] Comment:Testing performed by : [facility], [address] [place] [address] RBC 4.54 4.30 - 5.80 M/cumm [facility] Comment:Testing performed by : [facility], [address] [place] [address] MCV 93.1 81.3 - 96.4 fL [facility] Comment:Testing performed by : [facility], [address] [place] [address] MCH 31.5 27.1 - 33.3 pg [facility] Comment:Testing performed by : [facility], [address] [place] [address] MCHC 33.8 32.3 - 35.7 g/dL [facility] Comment:Testing performed by : [facility], [address] [place] [address] RDW CV 14.1 11.1 - 14.9 % [facility] Comment:Testing performed by : [facility], [address] [place] [address] NRBC abs 0.00 0.00 - 0.01 K/cumm [facility] Comment:Testing performed by : [facility], [address] [place] [address] Blood 05/31/2024 12:5 8 PM TELEPHONE ANSWERER 05/31/2024 12:59 PM TELEPHONE ANSWERER us Cem Howell MD LAB BLOOD ORDERABLES Fin al Result [facility] Department [place] [address] * (ABNORMAL) Total testosterone (05/31/2024 12:58 PM TELEPHONE ANSWERER) Pathologist [facility] Testosterone <5.0(L) 193.0 - 740.0 ng/dL Blood 05/31/2024 12:5 8 PM TELEPHONE ANSWERER 05/31/2024 1:54 PM TELEPHONE ANSWERER Cem Howell MD LAB BLOOD ORDERABLES Fin al Result [facility] Department [place] [address] * PSA diagnostic (05/31/2024 12:58 PM TELEPHONE ANSWERER) Pathologist [facility] PSA-Total <0.02 <=6.20 ng/mL Comment: Interpretive Data [...] revised 21. Blood 05/31/2024 12:5 8 PM TELEPHONE ANSWERER 05/31/2024 1:01 PM TELEPHONE ANSWERER Cem Howell MD LAB BLOOD ORDERABLES Fin al Result [facility] Department [place] [address] * Comprehensive metabolic panel (05/31/2024 12:58 PM TELEPHONE ANSWERER) Pathologist [facility] Sodium 144 135 - 145 mmol/L Potassium, pl 4.9 3.3 - 4.9 mmol/L [facility] Chloride 106 97 - 110 mmol/L [facility] CO2 30 22 - 32 mmol/L [facility] Anion gap 8 2 - 15 mmol/L [facility] BUN 22 6 - 25 mg/dL [facility] Creatinine 0.92 0.80 - 1.30 mg/dL [facility] Glucose 122 70 - 199 mg/dL [facility] Comment: Interpretive Data Fasting glucose >/= [...] 2022. Calcium 10.0 8.5 - 10.3 mg/dL [facility] Bilirubin, total 0.4 0.1 - 1.2 mg/dL [facility] Protein, pl 7.5 6.5 - 8.5 g/dL [facility] Albumin 4.6 3.5 - 5.0 g/dL [facility] Alk phos 72 40 - 130 Units/L [facility] ALT 15 7 - 55 Units/L [facility] AST 23 10 - 50 Units/L [facility] Blood 05/31/2024 12:5 8 PM TELEPHONE ANSWERER 05/31/2024 1:01 PM TELEPHONE ANSWERER us Cem Howell MD LAB BLOOD ORDERABLES Fin al Result [facility] Department [place] [address] * CT chest abdomen pelvis with contrast (03/31/2023 10:34 AM TELEPHONE ANSWERER) Anatomical Region Laterality Modality Body N/A Computed Tomogra phy 03/31/2023 11:0 1 AM TELEPHONE ANSWERER Impressions 03/31/2023 12:05 PM TELEPHONE ANSWERER No CT evidence of metastatic disease in the chest abdomen and pelvis Dictated by: Mahati Mokkarala, M.D. The radiology attending physician has personally reviewed this study, and had reviewed and/or edited this written report and agrees with it. Electronically signed by: Rui Lin M.D. Narrative 03/31/2023 12:05 PM TELEPHONE ANSWERER EXAMINATION: Computed tomography of the chest, abdomen [...] it. Electronically signed by: Rui Lin M.D. Ovidio Aguirre [place] [facility] [place]ED[place] Final Result from Last 3 Months or Most Recently Relevant to Health Maintenance Insurance MEDICARE COUNTS INCLUDE 234 BEDS AT THE [facility] MEDICARE INCLUDE 234 BEDS AT THE [facility] MEDICARE Address: [address] [place] [address] Care Teams Machine Operator Hay Stacker Relationship Specialty Start Date End Date Ferny Richmond MD PCP - General 05/17/16
--- OUTSIDE RECORDS SUMMARY | 2024-08-24 09:35 | XMS_ITS | Clinical Summary ---
Author Organization [facility] Address [address] [place] [address] Care Team Providers Care Frame Gate Mortiser Operator Name Role Phone Unavailable Primary Care Provider Unavailabl e Social History Tobacco Use Types Packs/Day Years Used Date Smoking Tobacco: Never Assessed Sex and Gender Information Value Date Recorded Sex Assigned at Not on file Legal Sex Male 1:18 AM PST Gender Identity Not on file Sexual Orientation Not on file Plan of Treatment Not on file
--- OUTSIDE RECORDS SUMMARY | 2024-08-24 09:35 | XMS_ITS | Patient Health Record ---
Author Organization [employer] Address [address] [place] [address] Care Team Providers Care Shop Tech Name Role Phone Ferny Richmond MD Primary Care Provider Izaiah Combs Unavailable [phone] Benji Reyes Multi Unavailable [phone] Results Component Value Reference Range Notes Pathology Report Reviewed date:09/26/2023 02:52:15 PM Interpretation: Performing Lab: Notes/Report: DIAGNOSES A. Gastric Antrum , Biopsy: -Gastric antral type mucosa with reactive gastropathy. -Alcian blue/PAS stain is negative for intestinal metaplasia. -Giemsa stain is negative for Helicobacter pylori organisms; confirmed with immunohistochemical stain. CLINICAL HISTORY Dyspepsia. Chronic gastritis, characterized by erythema and linear erosions. GROSSING DESCRIPTION A. The specimen is received in a Formalin-filled container labeled with the patient's name and designated Gastric Antrum It contains 3 fragments of hair tissue that measure 2x1x1, 2x1x1 ands 2x2x1 mm. The specimen was entirely submitted into a single cassette for processing. MICROSCOPIC DESCRIPTION Complete 100 microscopic examination is performed. The findings are included in the diagnosis rendered. Specimen A was evaluated with H&E stain. Specimen A was evaluated with Rapid Giemsa stain. Specimen A was evaluated with Alcian Blue PAS stain. Specimen A was evaluated with Helicobacter Pylori immunohistochemistry stain with adequate positive controls. Textual Pathology Report SEE NOTES Reason For Referral No Information Medications Medication SIG (Take, Route, Fr equency, Duration) Notes Start Date End Date Status Sucralfate 1 GM 1 tablet on an empty stomach Orally QID for 14 days 09/20/2023 Active Social History Tobacco Use: Social History Observation Description Date Details (start date - stop date) Current Smoker NA - NA Tobacco Use/Smoking Question Answer Notes Are you a current smoker Section Notes: He is . He has 3 chil dren. One of his children lives in the [facility] area. He is retired. He lives in [facility] with his . Problems Problem Type SNOMED Code ICD Code Onset Dates Problem Status W/U Status Risk Notes Problem 703388546 History of colon polyps (Z86.010) Active confirmed The natural history of colon polyps, colon cancer was reviewed, discussed today. Based on available information, he would be due for colonoscopy March 2018. Problem 068982215 Diverticulitis (K57.92) Active confirmed Diverticulosi s/diverticuli tis and its natural history, potential complications , treatment options were reviewed, discussed today. He was advised regarding a high-fiber diet. Problem Internal hemorrhoid (87691988) Internal hemorrhoid (K64.8) Active confirmed Problem 976344933 Family hx coloni c polyps (Z83.71) Active confirmed Encounters Encounter Location Date Provider Diagnosis [facility] [address] [place] [id number] 09/20/2023 Izaiah Linares Dyspepsia R10.13 [facility], [address] [place] [address] 09/19/2023 Cedric Leblanc [facility], [facility] [address] [facility] [place] [address] 09/22/2023 Izaiah Linares [facility], [address] [place] [address] 10/10/2023 Izaiah Linares Assessments Encounter Date Diagnosis (ICD Code) Assessment Notes Treatment Notes Treatment Clinical Notes Section Notes 09/20/2023 Dyspepsia (ICD-10 - R10.13) Plan Of Treatment No Information Insurance Providers Payer Name Payer Address Payer Phone Subscriber Number Group Number Insured Name Patient Relationship to Insured Coverage Start Date Coverage End Date [employer] Medicare Ppo E2 [address] [place] [address] [id number] Richie ferreira, [facility] Self - patient is the insured Medical (General) History Medical History History ICD Code Prostate cancer metastasized to bone Hypertension Diverticulosis/Diverticulitis Diverticulosis Colon Polyps Diverticulitis Surgical History Surgery Date(Month/Year) Colon resection due to diver ticulitis: Dr. Jason Murillo: [facility] 09/14/2015 Knee surgery 2006 Prostatectomy 2009 Appendectomy Back Surgery Colon / Bowel Surgery Hospitalization History Reason Date(Month/Year) [facility]: Prostate/Bone cancer [phone]
--- OUTSIDE RECORDS SUMMARY | 2024-08-24 09:35 | XMS_ITS ---
Author Organization [facility] Address [address] [place] [address] Care Team Providers Care Fuel Pilot Engineer Name Role Phone Ferny Richmond MD Primary Care Provider Active Problems Problem Noted Date Diagnosed Date [...] Neuropathy 12/17/2022 Coronary artery disease invo lving [place] coronary artery of [place] heart without angina pectoris 12/14/2022 Arthralgia of [...] from CV risk stratification if r/o'd for [place] Anemia 07/03/2021 Benign essential hypertension 02/12/2021 Cigarette [...] prostatectomy 2021 PSA undetectable Followed by PCP Current Treatment and Therapy Plans No current plan information found. Past Treatment and Therapy Plans Oncology Chemotherapy Treatment Plan Name Start Date Discontinue Date Treatment Medications Discontinue Reason Plan Provider Cycles Leuprolide Every 3 Months - Prostate 05/04/2016 03/08/2024 leuprolide (3 month) (ELIGARD)leupr olide (3 month) (LUPRON)leupro lide (ELIGARD) Provider Discretion Ovidio Aguirre MD 34 of 36 cycles started Oncology Supportive Care Therapy Plan Plan Name Start Date Discontinue Date Treatment Medications Discontinue Reason Plan Provider denosumab (PROLIA) Injection 10/19/2022 06/30/2023 No medications scheduled. Patient Preference Ovidio Aguirre MD Oncology Treatment (2) Plan Name Start Date Discontinue Date Treatment Medications Discontinue Reason Plan Provider Cycles Zoledronic Acid (Zometa) Every 12 Weeks 12/15/2023 No medications scheduled. Patient Preference Cem Howell MD Treatment not started Lifetime Dose Tracking * Chemical Lifetime Dose Automatic Entry Manual Entr y DLP 4,253 mGycm 4,253 mGycm 0 mGycm
--- OUTSIDE RECORDS SUMMARY | 2024-08-24 09:35 | XMS_ITS | Encounter Summary ---
Author Organization [facility] [place] Address [address] [place] [address] Care Team Providers Care Capacity Analyst Name Role Phone Unavailable Primary Care Provider Unavailabl e Prior Encounters Date Type Department Care Team Description 04/16/2019 Converted 13x Documents [facility] [address] [place] [address] <No scans attached> 04/16/2019 Converted CPS Chart Documents [facility] [address] [place] [address] <No scans attached> Plan of Treatment Not on file Procedures Procedure Name Priority Date/Time Associated Diagnosis Comments 29 LIMITED ORAL EVALUATION - PROBLEM FOCUSED Routine 04/15/2017 

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
--- NOTE | 2024-08-30 11:41 | WPDPFTINT ---
PFT Procedure Performed PFT Procedure Performed Plethysmography (Lung Vol) Diffusing Cap (DLCO) Flow Vol Loop Spirometry w/o Bronchodil PFT Interpretation DOS: 08/24/2024 REQUESTING: Ferny Richmond MD REASON FOR TESTING: Wheezing PULMONARY FUNCTION TESTS Results are reliable and reproducible. Repeatability of spirometry FEV1 maneuver is Grade A. GLI 2012 reference equations were used. Spirometry: The FEV1 is 1.58 L, 53%, reduced. The FVC is 2.59 L, 65%, reduced. The FEV1/FVC ratio is 61%, within normal limits. Lung volumes: The total lung capacity is 6.95 L, 98%, normal. The residual volume is 4.36 L, 166%, increased, consistent with air trapping. The RV/TLC is 63%, greatly increased. Airway resistance is elevated. Diffusion: DLCO is 16.6, 68%, normal. The DLCO/VA is 3.45, 93%, normal. Flow volume loop: The flow volume loop is unremarkable. IMPRESSION: This study shows a moderate decrease in FEV1 and FVC with a preserved FEV1/FVC ratio. Moderate air trapping which suggests airflow obstruction. Normal diffusion. No bronchodilator was administered. No prior studies for comparison. A trial of bronchodilator can be considered. Yue Leslie MD
== END 2024-08-24 09:27 | disposition home or self-care (01) ==
LOC: ANHPFT 09:27
PROVIDERS: PCP Internal Medicine; Visit Provider Internal Medicine
DX: R06.2 Wheezing (principal)
CPT/HCPCS: 94375; 94726; 94729

== ENCOUNTER 2025-01-30 13:31 | Emergency (ER) | payer MEDICARE, SELFPAY ==
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
[2025-01-30 13:31] VITALS: BP 149/96; PULSE 65; RESP 18; TEMP 36.3; O2SAT 99
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
[2025-01-30 16:57] VITALS: BP 140/90; PULSE 78; RESP 17; O2SAT 100
--- OUTSIDE RECORDS SUMMARY | 2025-01-31 12:41 | XMS_ITS | Clinical Summary ---
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
--- OUTSIDE RECORDS SUMMARY | 2025-01-31 12:41 | XMS_ITS | Clinical Summary ---
Author Organization [facility] Address [address] [place] [address] Care Team Providers Care Heavy Equipment Engine Mechanic Name Role Phone Ferny Richmond MD Primary Care Provider [phone] Source Comments [facility],non-owned Affiliates and Associated Physician Practices is amultiple site organization consisting of ambulatory clinics and hospital sitesin [place], [place], [place] and [place]. This disclosure is being madepursuant to the Care Everywhere program and may not contain all information available regarding this patient. 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 Gender Identity Not on file Sexual Orientation Not on file Plan of Treatment Health Maintenance Due Date Last Done Comments DTAP/TDAP/TD VACCINES (1 - Tdap) 1964 PNEUMOCOCCAL VACCINE 50+ (1 of 1 - PCV) 09/14/1995 ZOSTER VACCINE (1 of 2) 09/14/1995 Respiratory Syncytial Virus (RSV) Vaccine Pt: or over 60 yrs (1 - 1-dose 75+ series) 2020 DEPRESSION SCREENING 03/28/2024 COVID-19 VACCINE (2 - 2024-2 6 season) 2024 06/26/2020 INFLUENZA VACCINE (#1) 2024 HEPATITIS B VACCINE Aged Out No [...] patient's age to complete this topic Insurance [facility] MANAGED MEDICARE ADV Care Teams Heavy Equipment Engine Mechanic Relationship Specialty Start Date End Date Ferny Richmond MD [address] [place] [address] [address] [place] [address] PCP - General Internal Medicine 10/17/20
--- OUTSIDE RECORDS SUMMARY | 2025-01-31 12:41 | XMS_ITS | Encounter Summary ---
Author Organization [facility] Health Address [address] [place] [address] Care Team Providers Care Bellows Filler Name Role Phone Unavailable Primary Care Provider Unavailabl e Prior Encounters Date Type Department Care Team Description 04/16/2019 Converted 13x Documents [facility] [address] [place] [phone] <No scans attached> 04/16/2019 Converted CPS Chart Documents [facility] [address] [place] [phone] <No scans attached> Plan of Treatment Not on file Procedures Procedure Name Priority Date/Time Associated Diagnosis Comments 29 LIMITED ORAL EVALUATION - PROBLEM FOCUSED Routine 04/15/2017 2:00 AM KARATE INSTRUCTOR FM BLEACH IN-OFFICE Routine 04/15/2017 2 :00 AM KARATE INSTRUCTOR PANORAMIC RADIOGRAPHIC IMAGE Routine 04/15/2017 2:00 AM KARATE INSTRUCTOR BITEWINGS - FOUR RADIOGRAPHIC IMAGES Routine 04/15/2017 2:00 AM KARATE INSTRUCTOR ADDITIONAL X-RAY Routine 04/15/2017 2:00 AM KARATE INSTRUCTOR SINGLE X-RAY Routine 04/15/2017 2:00 AM KARATE INSTRUCTOR Visit Diagnoses Not on file
--- OUTSIDE RECORDS SUMMARY | 2025-01-31 15:18 | XMS_ITS | Clinical Summary ---
Author Organization [facility] Address [address] [place] [address] Care Team Providers Care Inspector Multifocal Lens Name Role Phone Ferny Richmond MD Primary Care Provider [phone] [facility],non-owned Affiliates and Associated Physician Practices is amultiple site organization consisting of ambulatory clinics and hospital sitesin [place], [place], [place] and [place]. This disclosure is being madepursuant to the Care Everywhere program and may not contain all information available regarding this patient. 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
--- OUTSIDE RECORDS SUMMARY | 2025-01-31 15:18 | XMS_ITS ---
Author Organization [facility] Address [address] [place] [address] Care Team Providers Care Clothing Patternmaker Name Role Phone Ferny Richmond MD Primary Care Provider Active Problems Problem Noted Date Diagnosed Date Shortness of breath 10/19/2024 Decreased hearing of both ears 12/29/2023 Diverticulitis [...] Neuropathy 12/17/2022 Coronary artery disease invo lving [place] coronary artery of [place] heart without angina pectoris 12/14/2022 Arthralgia of [...] from CV risk stratification if r/o'd for [place] Anemia 07/03/2021 Benign essential hypertension 02/12/2021 Cigarette [...] prostatectomy; laparascopic bilateral pelvic lymphadenectomy Pathology [id number], [place]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 Patient Preference Ovidio Aguirre MD Oncology Treatment (2) Plan Name Start Date Discontinue Date Treatment Medications Discontinue Reason Plan Provider Cycles Zoledronic Acid (Zometa) Every 12 Weeks 4 12/15/2023 No medications scheduled. Patient Preference Cem Howell MD Treatment not started Lifetime Dose Tracking * Chemical Lifetime Dose Automatic Entry Manual Entr y DLP 4,253 mGycm 4,253 mGycm 0 mGycm
--- OUTSIDE RECORDS SUMMARY | 2025-01-31 15:18 | XMS_ITS | Clinical Summary ---
Author Organization [facility] Health Address [address] [place] [address] Care Team Providers Care Library Technician Name Role Phone Unavailable Primary Care Provider [...]
--- OUTSIDE RECORDS SUMMARY | 2025-01-31 15:18 | XMS_ITS | Encounter Summary ---
Author Organization [facility] Address [address] [facility] [address] Phone Care Team Providers Care Transit Bus Driver Name Role Phone Ferny Richmond MD Primary [...] on file Legal Sex Male 12:17 AM INSURANCE BILLER Gender Identity Not on file Sexual Orientation [...] on filedocumented in this encounter Care Teams Transit Bus Driver Relationship Specialty Start Date End Date Ferny Richmond MD PCP - General 05/17/16 documented as of this encounter
--- OUTSIDE RECORDS SUMMARY | 2025-01-31 15:18 | XMS_ITS | Encounter Summary ---
Author Organization [facility] Health Address [address] [place] [address] Care Team Providers Care Infectious Diseases Physician Name Role Phone Unavailable Primary Care Provider Unavailabl e Prior Encounters Date Type Department Care Team Description 04/16/2019 Converted 13x Documents [facility] [address] [place] [phone] <No scans attached> 04/16/2019 Converted CPS Chart Documents [facility] [address] [place] [phone] <No scans attached> Plan of Treatment Not on file Procedures Procedure Name Priority Date/Time Associated Diagnosis Comments 29 LIMITED ORAL EVALUATION - PROBLEM FOCUSED Routine 04/15/2017 2:00 AM POLICE RESERVES COMMANDER FM BLEACH IN-OFFICE Routine 04/15/2017 2 :00 AM POLICE RESERVES COMMANDER PANORAMIC RADIOGRAPHIC IMAGE Routine 04/15/2017 2:00 AM POLICE RESERVES COMMANDER BITEWINGS - FOUR RADIOGRAPHIC IMAGES Routine 04/15/2017 2:00 AM POLICE RESERVES COMMANDER ADDITIONAL X-RAY Routine 04/15/2017 2:00 AM POLICE RESERVES COMMANDER SINGLE X-RAY Routine 04/15/2017 2:00 AM POLICE RESERVES COMMANDER Visit Diagnoses Not on file
--- OUTSIDE RECORDS SUMMARY | 2025-01-31 15:19 | XMS_ITS | Clinical Summary ---
Author Organization [facility] Address [address] [place] [address] Care Team Providers Care Product Safety Compliance Leader Name Role Phone Ferny Richmond MD Primary Care Provider Allergies No known active allergies Medications atorvastatin (LIPITOR) 40 mg tablet Take by mouth daily 8 Active cholecalciferol (VITAMIN D-3) 2,000 unit tablet 1 tab daily Active citalopram (CeleXA) 20 mg tablet daily 6 Active ALPRAZolam (XANAX) 0.5 mg tablet 3 (three) times a day as needed 6 Active calcium carbonate/vitam in D3 (CALCIUM 500 + D ORAL) Take by mouth daily. Active venlafaxine XR (EFFEXOR-XR) 75 mg 24 hr capsule venlafaxine ER 75 mg capsule,extended release 24 hr TK 1 C PO QD Active lisinopriL (PRINIVIL,ZESTR IL) 40 mg tablet Take 1 tablet (40 [...] Active pantoprazole DR (PROTONIX) 40 mg EC tabletIndicatio ns:Treatment of Non-Bleeding Gastric Disorder Take 1 tablet (40 mg total) by mouth daily 90 tablet 3 5 04/24/19 26 Active fluticasone-ume clidin-vilanter (Trelegy Ellipta) 100-62.5-25 mcg inhaler Inhale 1 puff daily 45 each 11 5 Active Additional Information Patient not taking.Reported on 01/01/2025 fluconazole (DIFLUCAN) 150 mg tablet Take 1 tablet (150 mg total) by mouth 5 Active aspirin 81 mg enteric coated tablet Take 1 tablet (81 mg total) by mouth daily Active alendronate (FOSAMAX) 70 mg tablet Take 1 tablet (70 mg total) by mouth every 7 days Take in the morning with a full glass of water, on an empty stomach, and do not take anything else by mouth or lie down for the next 30 min. Active Active Problems Problem Noted Date Diagnosed Date [...] Neuropathy 12/17/2022 Coronary artery disease invo lving [place] coronary artery of [place] heart without angina pectoris 12/14/2022 Arthralgia of [...] from CV risk stratification if r/o'd for MS Anemia 07/03/2021 Benign essential hypertension 02/12/2021 Cigarette [...] (asked for PSA check) 03/07/2009- Prostate biopsy (Wasco 3+3) 04/17/09- Laparascopic radical prostatectomy; laparascopic bilateral pelvic lymphadenectomy Pathology [id number], [place] 3+4, with positive LVI and positive seminal [...] Encounters Date Type Department Care Team Description 01/01/2025 1:00 PM CDT Office Visit [facility] Cardiology [address] [place] [address] Toribio Nuñez MD Benign essential hypertension (Primary Dx); Other chest pain; Coronary artery disease involving [place] coronary artery of [place] heart without angina pectoris; Mixed hyperlipidemia; Gastroesophageal reflux disease, unspecified whether esophagitis present 01/01/2025 Orders Only [facility] Medical [facility] Cardiology [address] [place] [address] ProviderParker MD 12/07/2024 Telephone [facility] Medicine Oncology [facility] [address] [place] [address] Blas Wyatt RN 12/06/2024 1:12 PM CDT - 12/06/2024 11:59 PM CDT Hospital Encounter [facility] [address] [place] [id number] Discharge Disposition: Discharge to home or self care 12/06/2024 12:30 PM CDT - 12/06/2024 11:59 PM CDT Hospital Encounter [facility] [address] [place] [address] Cancer of prostate (HCC) Discharge Disposition: Discharge to home or self care 11/29/2024 2:00 PM CDT [facility] [address] [place] [address] Cem Howell MD Cancer of prostate (HCC) (Primary Dx) 11/29/2024 1:[address] [facility] Lab Collection [address] [facility] Floor [address] [place] [address] Cancer of prostate (HCC) 11/29/2024 1:00 PM CDT Lab [facility] Medicine Oncology Lab [address] [place] [address] [address] [place] [address] Cancer of prostate (HCC) from Last 3 Months Immunizations Immunization Administration Dates Next Due [facility]) SARS-CoV-2 Vaccination 03/30/2021, 06/26/2020 Sars-CoV-2, Unspecified 07/20/2020 Tdap 07/07/2014 Surgical History Surgery Date Site/Laterality Comments KNEE SURGERY Knee Surgery - (Added by [employer]) MS LAP,PROSTATECTOMY,RADICAL,W/NE RVE SPARE,INCL ROBOTIC Prostatect Retropubic Radical W/ Nerve Sparing Laparoscopic - robotic; Jason 4+3, (+) seminal vesicle involvment, T3b (Added by [employer]) Medical History Medical History Date Comments Nontraumatic rupture of quadriceps tendon Rupture Of The Quadriceps Tendon Of The Right Leg - (Added by [employer]) Anxiety disorder Anxiety - (Adde d by [employer]) Personal history of other di seases of the circulatory system History of hypertension - (A dded by [employer]) Personal history of other me ntal and behavioral disorders History of depression - (Add ed by [employer]) Cancer (HCC) Prostate cancer (HCC) Bone cancer (HCC) Arthritis Hypertension Depression Dizziness High blood pressure Headache Migraine Hyperlipidemia Family History Medical History Relation Name Comments Prostate cancer Brother Family histo ry of prostate cancer - x 2 (Added by [employer]) Heart disease Father Kidney disease Mother [...] = 0.6 oz pur e alcohol) occasionally AUDIT-C Answer Date Recorded Q1: How often do you have a drink containing alc ohol? Never 10/19/2024 Average Number of Drinks Not on file 025 Frequency of Binge Drinking Not on file 09/26 Personal Safety Answer Date Recorded Have you ever been in or are you currently in a harmful physical or emotional relationship or is someone making you feel afraid or unsafe? 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 Gender Identity Not on file Sexual Orientation Not on file Last Filed Vital Signs Vital Sign Reading Time Taken Comments Blood Pressure 126/76 01/01/2025 1:15 PM CDT Pulse 61 01/01/2025 1:00 PM CDT Temperature 36.2 C (97.1 F) 11/29/2024 1:07 PM CDT Respiratory Rate 18 11/29/2024 1:07 PM CDT Oxygen Saturation 99% 01/01/2025 1:00 PM CDT Inhaled Oxygen Concentration - - Weight 80.7 kg (178 lb) 01/01/2025 1:00 PM CDT Height 177.8 cm (5' 10) 01/01/2025 1:00 PM CDT Body Mass Index 25.54 01/01/2025 1:00 PM CDT Plan of Treatment Health Maintenance Due Date Last Done Comments Depression Screening 1945 Fall Risk Assessment 1945 Hepatitis C Screening 1945 Hepatitis B Screening 09/14/1963 Pneumococcal vaccine 65+ (1 of 2 - PCV) 1964 Zoster Vaccine (1 of 2) 09/14/1995 Well Visit 65+ 2010 DTaP/Tdap/Td Vaccine (2 - Td or Tdap) 07/07/2024 07/07/2014 Covid-19 Vaccine (4 - 2024-2 6 season) 2024 03/30/2021, 07/20/2020, 06/26/2020 Influenza Vaccine (#1) 2024 Abdominal Aortic Aneurysm (A AA) Screen Completed 03/31/2023, 05/26/2021, 05/01/2019, Additional history exists Procedures Procedure Name Priority Date/Time Associated Diagnosis Comments NM BONE IMAGING WHOLE BODY Schedule Routine, Read Routine (OP Routine) 12/06/2024 3:55 PM CDT Cancer of prostate (HCC) EGFR Routine 11/29/2024 1:01 PM CDT Cancer of prostate (HCC) DIFFERENTIAL AUTO Routine 11/29/2024 1:0 1 PM CDT Cancer of prostate (HCC) CBC WITH AUTO DIFFERENTIAL Routine 11/29/2024 1:01 PM CDT Cancer of prostate (HCC) COMPREHENSIVE METABOLIC PANEL Routine 11/29/2024 1:01 PM CDT Cancer of prostate (HCC) PSA DIAGNOSTIC Routine 11/29/2024 1:01 PM CDT Cancer of prostate (HCC) TOTAL TESTOSTERONE Routine 11/29/2024 1: 01 PM CDT Cancer of prostate (HCC) CT CHEST ABDOMEN PELVIS W CONTRAST Schedule Routine, Read Routine (OP Routine) 03/31/2023 10:34 AM COMMUNITY DIRECTOR Cancer of prostate (HCC) from Last 3 Months or Most Recently Relevant to Health Maintenance Results * NM bone scan whole body (12/06/2024 3:55 PM CDT) Anatomical Region Laterality Modality N/A Nuclear Medicine 12/06/2024 4:56 PM CDT Impressions 12/06/2024 5:28 PM CDT 1. No scintigraphic evidence of osseous metastatic disease. Dictated by: Jose Olivares M.D. The radiology attending physician has personally reviewed this study, and had reviewed and/or edited this written report and agrees with it. Electronically signed by: Jason Benjamin DO Narrative 12/06/2024 5:28 PM CDT EXAMINATION: BONE SCINTIGRAPHY (WHOLE-BODY) DATE OF STUDY: 12/06/2024 RADIOPHARMACEUTICAL: 21.49 mCi Tc-99m MDP i.v. HISTORY: 79-year-old male with prostate cancer diagnosed in 2009, Jason 4+3. He has since had radical prostatectomy, radiation therapy to the prostatic bed, and radiation to pelvic lymph nodes and L4 lesion in 2017. He is now on observation. FINDINGS: Delayed whole-body scintigrams were obtained. Prior nuclear medicine studies used for comparison: Bone scintigraphy 03/31/2023 Other radiographic comparisons: CT 11/09/2023 There is interval resolution of the right posterior 11th and left 5th rib uptake associated with prior rib fractures. There is mild focal uptake at a left posterior 10th rib corresponding with old fracture. There is unchanged degenerative uptake at the lower lumbar spine along the left aspect of L5. Degenerative uptake is seen at the bilateral shoulders. There is focal uptake at the left parietal skull, favored to be benign. Procedure Note Jason Benjamin DO - 12/06/2024 EXAMINATION: BONE SCINTIGRAPHY (WHOLE-BODY) DATE OF STUDY: 12/06/2024 RADIOPHARMACEUTICAL: 21.49 mCi Tc-99m MDP i.v. HISTORY: 79-year-old male with prostate cancer diagnosed in 2008, Wasco 4+3. He has since had radical prostatectomy, radiation therapy to the prostatic bed, and radiation to pelvic lymph nodes and L4 lesion in 2017. He is now on observation. FINDINGS: Delayed whole-body scintigrams were obtained. Prior nuclear medicine studies used for comparison: Bone scintigraphy 03/31/2023 Other radiographic comparisons: CT 11/09/2023 There is interval resolution of the right posterior 11th and left 5th rib uptake associated with prior rib fractures. There is mild focal uptake at a left posterior 10th rib corresponding with old fracture. There is unchanged degenerative uptake at the lower lumbar spine along the left aspect of L5. Degenerative uptake is seen at the bilateral shoulders. There is focal uptake at the left parietal skull, favored to be benign. IMPRESSION: 1. No scintigraphic evidence of osseous metastatic disease. Dictated by: Jose Olivares M.D. The radiology attending physician has personally reviewed this study, and had reviewed and/or edited this written report and agrees with it. Electronically signed by: Jason Benjamin DO us Cem Howell MD IMG NM PROCEDURES Final Result * eGFR (11/29/2024 1:01 PM CDT) eGFR 85 >=60 mL/min/1. 73 m2 Comment: [...] Inclusion of Race in Diagnosing Kidney Disease, PAZN 2020). The CKD-EPI equation should not be used for patients with unstable renal function and has not been validated in children and those over 70. Current interpretive data was last reviewed 2021. Blood 11/29/2024 1:01 PM CDT 11/29/2024 1:06 PM CDT us Cem Howell MD LAB BLOOD ORDERABLES Fin al Result [facility] Department [place] [address] * Differential, auto (11/29/2024 1:01 PM CDT) Neutrophil abs 3.84 1.50 - 6.50 K/cumm Comment:Testing performed by : [facility], [address] [place], [place] [phone] Lymphocyte abs 0.80 0.80 - 3.30 K/cumm [facility] Comment:Testing performed by : [facility], [address] [place] [address] Monocyte abs 0.37 0.20 - 0.80 K/cumm C[facility]ER [facility] Comment:Testing performed by : [facility], [address] [place], [place] [id number] Eosinophil abs 0.10 0.00 - 0.50 K/cumm [facility] Comment:Testing performed by : [facility], [address] [place], [place] [phone] Basophil abs 0.05 0.00 - 0.10 K/cumm [facility] Comment:Testing performed by : [facility], [address] [place], [place] [phone] Neutrophil pct 74.4 % [facility] Comment: Interpretive Data Percent cell count reference ranges are not reported, since discordance with absolute values may lead to misinterpretation of CBC data. Current Interpretive Data was last revised on 2017. Testing performed by: [facility], [address] [place], [place] [phone] Lymphocyte pct 15.5 % [facility] Comment: Interpretive Data Percent cell count reference ranges are not reported, since discordance with absolute values may lead to misinterpretation of CBC data. Current Interpretive Data was last revised on 2017. Testing performed by: [facility], [address] [place] [phone] Monocyte pct 7.1 % [facility] Comment: Interpretive Data Percent cell count reference ranges are not reported, since discordance with absolute values may lead to misinterpretation of CBC data. Current Interpretive Data was last revised on 2017. Testing performed by: [facility], [address] [place] [phone] Eosinophil pct 2.0 % [facility] Comment: Interpretive Data Percent cell count reference ranges are not reported, since discordance with absolute values may lead to misinterpretation of CBC data. Current Interpretive Data was last revised on 2017. Testing performed by: [facility], [address] [place] [phone] Basophil pct 0.9 % [facility] Comment: Interpretive Data Percent cell count reference ranges are not reported, since discordance with absolute values may lead to misinterpretation of CBC data. Current Interpretive Data was last revised on 2017. Testing performed by: [facility], [address] [place] [phone] Blood 11/29/2024 1:01 PM CDT 11/29/2024 1:04 PM CDT us Cem Howell MD LAB BLOOD ORDERABLES Fin al Result [facility] Department [place] [address] * (ABNORMAL) CBC with auto differential (11/29/2024 1:01 PM CDT) WBC 5.16 3.80 - 9.90 K/cumm Comment:Testing performed by : [facility], [address] [place] [address] Hgb 13.2 13.0 - 17.5 g/dL [facility] Comment:Testing performed by : [facility], [address] [place], [place] [phone] Hct 38.7(L) 38.9 - 50.3 % [facility] Comment:Testing performed by : [facility], [address] [place], [place] [phone] Plt 153 150 - 400 K/cumm [facility] Comment:Testing performed by : [facility], [address] [place], [place] [phone] MPV 8.3 6.8 - 10.4 fL [facility] Comment:Testing performed by : [facility], [address] [place], [place] [phone] RBC 4.19(L) 4.30 - 5.80 M/cumm [facility] Comment:Testing performed by : [facility], [address] [place], [place] [phone] MCV 92.5 81.3 - 96.4 fL [facility] Comment:Testing performed by : [facility], [address] [place], [place] [phone] MCH 31.5 27.1 - 33.3 pg [facility] Comment:Testing performed by : [facility], [address] [place] [address] MCHC 34.0 32.3 - 35.7 g/dL [facility] Comment:Testing performed by : [facility], [address] [place] [address] RDW CV 14.1 11.1 - 14.9 % [facility] Comment:Testing performed by : [facility], [address] [place], [place] [phone] NRBC abs 0.00 0.00 - 0.01 K/cumm [facility] Comment:Testing performed by : [facility], [address] [place] [address] Blood 11/29/2024 1:01 PM CDT 11/29/2024 1:04 PM CDT Cem Howell MD LAB BLOOD ORDERABLES Fin al Result Performing Organization Address [facility] Co de Phone Number LISETH [facility] [place] [address] * (ABNORMAL) Total testosterone (11/29/2024 1:01 PM CDT) Testosterone 28.0(L) 193.0 - 740.0 ng/dL Blood 11/29/2024 1:01 PM CDT 11/29/2024 1:28 PM CDT Cem Howell MD LAB BLOOD ORDERABLES Fin al Result Performing Organization Address [facility] [place] [address] * PSA diagnostic (11/29/2024 1:01 PM CDT) PSA-Total <0.02 <=6.20 ng/mL Comment: [...] Current interpretive data last revised 21. Blood 11/29/2024 1:01 PM CDT 11/29/2024 1:06 PM CDT Cem Howell MD LAB BLOOD ORDERABLES Fin al Result Performing Organization Address [facility] Co de Phone Number [facility] [place] [address] * Comprehensive metabolic panel (11/29/2024 1:01 PM CDT) Sodium 144 135 - 145 mmol/L Potassium, pl 4.7 3.3 - 4.9 mmol/L [facility] Chloride 107 97 - 110 mmol/L [facility] CO2 27 22 - 32 mmol/L [facility] Anion gap 10 2 - 15 mmol/L [facility] BUN 22 6 - 25 mg/dL [facility] Creatinine 0.92 0.80 - 1.30 mg/dL [facility] Glucose 140 70 - 199 mg/dL [facility] Comment: Interpretive Data Fasting glucose >/= [...] interpretive data was last revised 2022. Calcium 9.6 8.5 - 10.3 mg/dL [facility] Bilirubin, total 0.4 0.1 - 1.2 mg/dL [facility] Protein, pl 7.1 6.5 - 8.5 g/dL [facility] Albumin 4.3 3.5 - 5.0 g/dL [facility] Alk phos 62 40 - 130 Units/L [facility] ALT 16 7 - 55 Units/L [facility] AST 23 10 - 50 Units/L [facility] Blood 11/29/2024 1:01 PM CDT 11/29/2024 1:06 PM CDT us Cem Howell MD LAB BLOOD ORDERABLES Fin al Result [facility] Department [place] [address] * CT chest abdomen pelvis with contrast (03/31/2023 10:34 AM COMMUNITY DIRECTOR) Anatomical Region Laterality Modality Body N/A Computed Tomogra phy 03/31/2023 11:0 1 AM COMMUNITY DIRECTOR Impressions 03/31/2023 12:[address] No [address] evidence of metastatic disease in the chest abdomen and pelvis Dictated by: Mercedes Cabral M.D. The radiology attending physician has personally reviewed this study, and had reviewed and/or edited this written report and agrees with it. Electronically signed by: Rui Lin M.D. Narrative 03/31/2023 12:05 PM COMMUNITY DIRECTOR EXAMINATION: Computed tomography of the chest, abdomen [...] by: Rui Lin M.D. Ovidio Aguirre MD IMG CT PROCEDURES Final Result from Last 3 Months or Most Recently Relevant to Health Maintenance Insurance T MEDICARE [facility] MEDICARE ADVANTAGE MEDICARE [facility] MEDICARE Care Teams Product Safety Compliance Leader Relationship Specialty Start Date End Date Ferny Richmond MD PCP - General 05/17/16
== END 2025-01-30 16:58 | disposition home or self-care (01) ==
LOC: ANHED 16:50
PROVIDERS: Emergency Provider Physician Assistant; PCP Internal Medicine
DX: S09.90XA Unspecified injury of head, initial encounter (principal); I10 Essential (primary) hypertension; K21.9 Gastro-esophageal reflux disease without esophagitis; M47.812 Spondylosis without myelopathy or radiculopathy, cervical region; M16.0 Bilateral primary osteoarthritis of hip; V49.40XA Driver injured in collision with unspecified motor vehicles in traffic accident, initial encounter
CPT/HCPCS: 70450; 72125; 73130; 73552; 99284